=== PATIENT | male | born 1960 | race Caucasian/White ===

== ENCOUNTER 2016-09-30 14:32 | Emergency (ER) | payer MEDICAID ==
[~2016-09-30] VITALS: Ht 177.8 cm; Wt 77.1 kg
[2016-09-30 15:23] LABS: Basophils # (auto) 0 uL; Basophils % (auto) 0.3 % (0.0-2.0); Eosinophils # (auto) 0.1 uL; Eosinophils % (auto) 1.1 % (0.0-7.0); Hematocrit 44.2 % (41.0-53.0); Hemoglobin 14.8 g/dL (13.5-17.5); Lymphocytes # (auto) 1.5 uL; Mean Corpuscular Hemoglobin 29.1 pg (28.0-32.0); Mean Corpuscular Hgb Conc. 33.5 g/dL (32.0-36.0); Mean Corpuscular Volume 86.8 fL (80.0-100.0); Mean Platelet Volume 6.7 fL (7.4-10.4); Monocytes # (auto) 0.3 uL; Monocytes % (auto) 5.5 % (0.0-12.0); Neutrophils # (auto) 3.2 uL; Neutrophils % (auto) 64.1 % (37.0-80.0); Platelet Count (auto) 220 10^3/uL (140-450); Red Cell Distribution Width 13.5 % (11.6-16.0); White Blood Cell 5.1 10^3/uL (4.4-10.8)
[2016-09-30 15:57] LABS: Albumin 3.8 g/dL (3.4-5.0); Alkaline Phosphatase 47 U/L (45-117); Anion Gap 5 (5-15); Aspartate Aminotransferase 19 U/L (15-37); BUN/Creatinine Ratio 14.3; Bilirubin, Total 0.8 mg/dL (0.2-1.0); Blood Urea Nitrogen 14 mg/dL (7-18); Carbon Dioxide 28 mmol/L (21-32); Chloride 106 mmol/L (98-107); GFR African American 102 mL/min; GFR Non-African American 84 mL/min; Glucose 107 mg/dL (74-106); Magnesium 2.5 mg/dL (1.6-2.6); Potassium 3.8 mmol/L (3.5-5.1); Sodium 139 mmol/L (136-145); Total Protein 7.1 g/dL (6.4-8.2)
[2016-09-30] MEDS ORDERED: SODIUM CHLORIDE 0.9% 1,000 ML IV ONE (19:08)
[2016-09-30] MEDS ORDERED: methylPREDNISolone SOD SUCC 125 MG/2 ML VL IV ONE (19:15)
[2016-09-30] MEDS ORDERED: IPRATROPIUM BROM 0.5 MG/2.5ML INH SOL NEB ONE (19:15)
[2016-09-30] MEDS ORDERED: ALBUTEROL SULF 2.5 MG/0.5ML(0.5%) NEB SOLN NEB ONE (19:15)
[2016-09-30] MEDS ORDERED: FAMOTIDINE (10MG/ML) 2ML VL IV ONE (19:15)
[2016-09-30] MEDS ORDERED: ASPirin 81 mg TAB PO ONE (19:15)
[2016-09-30 20:08] LABS: B-Type Natriuretic Peptide 32.9 pg/mL (0-100); Temperature: 22.5 C (20.0-25.0)
[2016-09-30 20:22] LABS: INR 1.03 (0.9-1.15); Partial Thromboplastin Time 26.1 sec (22.64-33.71); Prothrombin Time 11.1 sec (9.37-12.3)
[2016-09-30 21:30] VITALS: BP 114/67
== END 2016-09-30 22:05 | disposition home or self-care (01) ==
LOC: ER 14:32 → EDBD 14:32 → ER 22:05
DX: J20.9 Acute bronchitis, unspecified (principal); J44.1 Chronic obstructive pulmonary disease with (acute) exacerbation; F17.210 Nicotine dependence, cigarettes, uncomplicated; J45.909 Unspecified asthma, uncomplicated; I25.2 Old myocardial infarction
CPT/HCPCS: 36415; 71020; 80053; 83735; 83880; 84484; 85025; 85379; 85610; 85730; 93005; 94640; 96361; 96374; 96375; 99285; J2930; J3490

== ENCOUNTER 2017-07-23 11:24 | Inpatient (IN) | payer MEDICAID ==
[~2017-07-23] VITALS: Ht 182.9 cm; Wt 64.2 kg
[2017-07-23 12:27] LABS: Basophils # (auto) 0 uL; Basophils % (auto) 0.9 % (0.0-2.0); Eosinophils # (auto) 0.1 uL; Eosinophils % (auto) 1.2 % (0.0-7.0); Hematocrit 44.4 % (41.0-53.0); Hemoglobin 14.9 g/dL (13.5-17.5); Lymphocytes # (auto) 1.6 uL; Lymphocytes % (auto) 30.4 % (10.0-50.0); Mean Corpuscular Hemoglobin 29.4 pg (28.0-32.0); Mean Corpuscular Hgb Conc. 33.5 g/dL (32.0-36.0); Mean Corpuscular Volume 87.5 fL (80.0-100.0); Monocytes # (auto) 0.5 uL; Monocytes % (auto) 9.6 % (0.0-12.0); Neutrophils % (auto) 57.9 % (37.0-80.0); Nucleated Red Blood Cells % 0.1 %; Platelet Count (auto) 163 10^3/uL (140-450); Red Blood Cells 5.08 10^6/uL (4.5-5.90); Red Cell Distribution Width 14.2 % (11.8-14.3); White Blood Cell 5.1 10^3/uL (4.4-10.8)
[2017-07-23 12:48] LABS: Albumin 3.7 g/dL (3.4-5.0); Calcium 9.2 mg/dL (8.5-10.1); Magnesium 2.5 mg/dL (1.6-2.6)
[2017-07-23 12:51] LABS: Bilirubin, Total 0.7 mg/dL (0.2-1.0)
[2017-07-23] MEDS ORDERED: LORazepam 0.5 MG TAB PO PRN (15:45)
[2017-07-23] MEDS ORDERED: PROMETHAZINE HCL 25 MG/ML 1ML IV PRN (15:45)
[2017-07-23] MEDS ORDERED: LACTULOSE 20Gm/30ML SOLN PO PRN (15:45)
[2017-07-23] MEDS ORDERED: HYDROcodone-ACET 5/325MG TAB PO PRN (15:45)
[2017-07-23] MEDS ORDERED: ALBUTEROL SULF 2.5 MG/0.5ML(0.5%) NEB SOLN NEB PRN (15:45)
[2017-07-23] MEDS ORDERED: MORPHINE SULFATE 10 MG/ML INJ 1ML SDV IV PRN ×2 (15:45)
[2017-07-23] MEDS ORDERED: NITROGLYCERIN 0.4 MG SL TAB SL PRN (15:45)
[2017-07-23] MEDS ORDERED: ACETAMINOPHEN 500 MG TAB PO PRN (15:45)
[2017-07-23] MEDS ORDERED: TEMAZEPAM 15 MG CAP PO PRN (15:45)
[2017-07-23] MEDS: SODIUM CHLORIDE 0.9% 1,000 ML IV SCH (16:19)
[2017-07-23] MEDS: methylPREDNISolone SOD SUCC 40 MG/ML VL IV SCH (16:19)
[2017-07-23 16:45] VITALS: BP 124/78
[2017-07-23] MEDS ORDERED: ASPI81CH43 PO (17:35)
[2017-07-23] MEDS ORDERED: ALBUAER3 IN (17:35)
[2017-07-23] MEDS: IPRATROPIUM BROM 0.5 MG/2.5ML INH SOL NEB SCH (18:00)
[2017-07-23] MEDS: ALBUTEROL SULF 2.5 MG/0.5ML(0.5%) NEB SOLN NEB SCH (18:00)
[2017-07-23] MEDS: METOPROLOL TARTRATE 25 MG TAB PO SCH (21:40)
[2017-07-23 22:00] VITALS: BP 125/57
[2017-07-23] MEDS ORDERED: ATORVASTATIN 20 MG TAB PO SCH (22:00)
[2017-07-24] MEDS: methylPREDNISolone SOD SUCC 40 MG/ML VL IV SCH ×2 (04:06→15:32)
[2017-07-24] MEDS: SODIUM CHLORIDE 0.9% 1,000 ML IV SCH (04:31)
[2017-07-24 05:00] VITALS: BP 101/56
[2017-07-24] MEDS: IPRATROPIUM BROM 0.5 MG/2.5ML INH SOL NEB SCH ×3 (06:23→11:39)
[2017-07-24] MEDS: ALBUTEROL SULF 2.5 MG/0.5ML(0.5%) NEB SOLN NEB SCH ×3 (06:23→11:39)
[2017-07-24 08:57] VITALS: BP 101/56
[2017-07-24 09:20] VITALS: BP 116/66
[2017-07-24] MEDS: METOPROLOL TARTRATE 25 MG TAB PO SCH (10:00)
[2017-07-24] MEDS ORDERED: NITROGLYCERIN 0.2MG/HR TOPICAL PATCH TD SCH (10:00)
[2017-07-24] MEDS ORDERED: ENOXAPARIN SOD 40 MG/0.4 ML SYRINGE SC SCH (10:00)
[2017-07-24] MEDS ORDERED: ASPirin 81 mg TAB PO SCH (10:00)
[2017-07-24 11:20] VITALS: BP 117/61
[2017-07-24] MEDS ORDERED: FLUT110A INH (14:28)
[2017-07-24] MEDS ORDERED: DOXY-216 PO (14:28)
[2017-07-24] MEDS ORDERED: IPR002IS NEB (14:28)
[2017-07-24] MEDS ORDERED: ALB5IS NEB (14:28)
[2017-07-24 15:10] VITALS: BP 116/66
[2017-07-24 17:09] VITALS: BP 114/63
== END 2017-07-24 17:00 | disposition home or self-care (01) | DRG 140 ==
LOC: ER 11:24 → TELE 11:25 → TELE-WESTW 16:37
PROVIDERS: ADMIT Internal Medicine; ATTEND Internal Medicine
DX: J44.1 Chronic obstructive pulmonary disease with (acute) exacerbation (principal); I10 Essential (primary) hypertension; I25.10 Atherosclerotic heart disease of native coronary artery without angina pectoris; I25.2 Old myocardial infarction; Z82.49 Family history of ischemic heart disease and other diseases of the circulatory system; Z95.5 Presence of coronary angioplasty implant and graft; Z83.3 Family history of diabetes mellitus; Z87.891 Personal history of nicotine dependence; R07.81 Pleurodynia
CPT/HCPCS: 36415; 71046; 80053; 82550; 83735; 84484; 85025; 85379; 85652; 93005; 94640; 96374

== ENCOUNTER 2017-08-17 21:07 | Emergency (ER) | payer MEDICAID ==
[~2017-08-17] VITALS: Ht 182.9 cm; Wt 68.0 kg
[~2017-08-17 21:07] MED LIST: ALB5IS NEB; ALBUAER3 IN; ASPI81CH43 PO; DOXY-216 PO; FLUT110A INH; IPR002IS NEB
[2017-08-17 21:13] VITALS: BP 159/105
[2017-08-17 21:59] LABS: Basophils # (auto) 0.1 uL; Basophils % (auto) 1.1 % (0.0-2.0); Eosinophils # (auto) 0.2 uL; Eosinophils % (auto) 2.3 % (0.0-7.0); Hematocrit 43.5 % (41.0-53.0); Hemoglobin 15.1 g/dL (13.5-17.5); Lymphocytes # (auto) 1.6 uL; Lymphocytes % (auto) 23.9 % (10.0-50.0); Mean Corpuscular Hemoglobin 30.6 pg (28.0-32.0); Mean Corpuscular Hgb Conc. 34.6 g/dL (32.0-36.0); Mean Corpuscular Volume 88.3 fL (80.0-100.0); Monocytes # (auto) 0.5 uL; Neutrophils # (auto) 4.3 uL; Neutrophils % (auto) 64.7 % (37.0-80.0); Nucleated Red Blood Cells % 0.2 %; Platelet Count (auto) 241 10^3/uL (140-450); Red Blood Cells 4.93 10^6/uL (4.5-5.90); Red Cell Distribution Width 15.3 % (11.8-14.3); White Blood Cell 6.7 10^3/uL (4.4-10.8)
[2017-08-17 22:20] LABS: INR 1.02 (0.9-1.15); Partial Thromboplastin Time 26.6 sec (22.64-33.71); Prothrombin Time 11.1 sec (9.37-12.3)
[2017-08-17 22:26] LABS: Alanine Aminotransferase 45 U/L (16-61); Albumin 3.7 g/dL (3.4-5.0); Anion Gap 6 (5-15); Aspartate Aminotransferase 33 U/L (15-37); BUN/Creatinine Ratio 11.8; Blood Urea Nitrogen 12 mg/dL (7-18); Calcium 8.6 mg/dL (8.5-10.1); Carbon Dioxide 27 mmol/L (21-32); Chloride 105 mmol/L (98-107); GFR African American 97 mL/min; GFR Non-African American 80 mL/min; Glucose 92 mg/dL (74-106); Magnesium 2.4 mg/dL (1.6-2.6); Potassium 4.7 mmol/L (3.5-5.1); Sodium 138 mmol/L (136-145)
[2017-08-17 22:31] LABS: Alkaline Phosphatase 61 U/L (45-117); Bilirubin, Total 0.7 mg/dL (0.2-1.0); Total Protein 7.1 g/dL (6.4-8.2)
[2017-08-18] MEDS ORDERED: ASPirin 81 mg TAB PO ONE (00:30)
== END 2017-08-18 05:55 | disposition left against medical advice (07) ==
LOC: ER 21:07 → EDBD 21:07 → ER 08-18 05:55
DX: R07.89 Other chest pain (principal); M79.671 Pain in right foot; Z53.21 Procedure and treatment not carried out due to patient leaving prior to being seen by health care provider
CPT/HCPCS: 36415; 71045; 80053; 83735; 83880; 84443; 84484; 85025; 85610; 85730; 93005

== ENCOUNTER 2017-12-21 08:11 | Inpatient (IN) | payer MEDICAID ==
[~2017-12-21] VITALS: Ht 182.9 cm; Wt 66.4 kg
[2017-12-21 09:02] LABS: Basophils # (auto) 0 uL; Basophils % (auto) 0.6 % (0.0-2.0); Eosinophils # (auto) 0.1 uL; Eosinophils % (auto) 1.1 % (0.0-7.0); Hematocrit 46.8 % (41.0-53.0); Hemoglobin 16.4 g/dL (13.5-17.5); Lymphocytes # (auto) 1.4 uL; Lymphocytes % (auto) 30.4 % (10.0-50.0); Mean Corpuscular Hemoglobin 30.8 pg (28.0-32.0); Mean Corpuscular Hgb Conc. 35.1 g/dL (32.0-36.0); Mean Corpuscular Volume 87.8 fL (80.0-100.0); Monocytes # (auto) 0.4 uL; Monocytes % (auto) 7.9 % (0.0-12.0); Neutrophils # (auto) 2.8 uL; Nucleated Red Blood Cells % 0.1 %; Platelet Count (auto) 192 10^3/uL (140-450); Red Blood Cells 5.33 10^6/uL (4.5-5.90); Red Cell Distribution Width 13.6 % (11.8-14.3); White Blood Cell 4.7 10^3/uL (4.4-10.8)
[2017-12-21 09:21] LABS: INR 1.03 (0.9-1.15); Partial Thromboplastin Time 26.6 sec (23.78-33.04)
[2017-12-21 09:34] LABS: Alanine Aminotransferase 17 U/L (16-61); Alkaline Phosphatase 48 U/L (45-117); Anion Gap 6 (5-15); Aspartate Aminotransferase 13 U/L (15-37); BUN/Creatinine Ratio 8.6; Bilirubin, Total 1.4 mg/dL (0.2-1.0); Blood Urea Nitrogen 10 mg/dL (7-18); Calcium 9.2 mg/dL (8.5-10.1); Carbon Dioxide 29 mmol/L (21-32); Chloride 105 mmol/L (98-107); GFR African American 83 mL/min; GFR Non-African American 69 mL/min; Glucose 101 mg/dL (74-106); Magnesium 2.8 mg/dL (1.6-2.6); Potassium 4.9 mmol/L (3.5-5.1); Sodium 140 mmol/L (136-145); Total Protein 7.2 g/dL (6.4-8.2)
[2017-12-21] MEDS ORDERED: LACTULOSE 20Gm/30ML SOLN PO PRN (12:45)
[2017-12-21] MEDS ORDERED: NITROGLYCERIN 0.2MG/HR TOPICAL PATCH TD ONE (12:45)
[2017-12-21] MEDS ORDERED: PROMETHAZINE HCL 25 MG/ML 1ML IV PRN (12:45)
[2017-12-21] MEDS ORDERED: TEMAZEPAM 15 MG CAP PO PRN (12:45)
[2017-12-21] MEDS ORDERED: traMADol HCL 50 MG TAB PO PRN (12:45)
[2017-12-21] MEDS ORDERED: LORazepam 0.5 MG TAB PO PRN (12:45)
[2017-12-21] MEDS ORDERED: NITROGLYCERIN 0.4 MG SL TAB SL PRN (12:45)
[2017-12-21] MEDS ORDERED: MORPHINE SULF INJ 2 MG/ML SYRINGE 1ML IV PRN (12:45)
[2017-12-21] MEDS ORDERED: ALBUTEROL SULF 2.5 MG/0.5ML(0.5%) NEB SOLN NEB PRN (12:45)
[2017-12-21] MEDS ORDERED: KETOROLAC TROMETH 30 MG/ML 1ML VIAL IV PRN (12:45)
[2017-12-21] MEDS ORDERED: ACETAMINOPHEN 500 MG TAB PO PRN (12:45)
[2017-12-21] MEDS ORDERED: ASPirin 81 mg TAB PO ONE (12:45)
[2017-12-21] MEDS ORDERED: ENOXAPARIN SOD 40 MG/0.4 ML SYRINGE SC ONE (12:45)
[2017-12-21] MEDS ORDERED: LABETALOL HCL 5 MG/ML ML 20ML VIAL IV PRN (12:45)
[2017-12-21] MEDS: SODIUM CHLORIDE 0.9% 1,000 ML IV SCH (13:10)
[2017-12-21] MEDS ORDERED: IOHEXOL 350 MG/ML 100ML IJ ONE (16:35)
[2017-12-21] MEDS ORDERED: LORazepam 2MG/ML-1ML VIAL IV PRN (17:30)
[2017-12-21] MEDS: DOXYCYCLINE 100MG/250ML 250 ML IV SCH (18:25)
[2017-12-21] MEDS: methylPREDNISolone SOD SUCC 40 MG/ML VL IV SCH (18:26)
[2017-12-21] MEDS: IPRATROPIUM BROM 0.5 MG/2.5ML INH SOL NEB SCH (19:25)
[2017-12-21] MEDS: ALBUTEROL SULF 2.5 MG/0.5ML(0.5%) NEB SOLN NEB SCH (19:25)
[2017-12-21 19:30] VITALS: BP 115/69
[2017-12-21] MEDS: ATORVASTATIN 20 MG TAB PO SCH (21:42)
[2017-12-21 22:00] VITALS: BP 135/82
[2017-12-22] MEDS: methylPREDNISolone SOD SUCC 40 MG/ML VL IV SCH ×2 (00:20→05:53)
[2017-12-22] MEDS: IPRATROPIUM BROM 0.5 MG/2.5ML INH SOL NEB SCH ×4 (00:42→18:40)
[2017-12-22] MEDS: ALBUTEROL SULF 2.5 MG/0.5ML(0.5%) NEB SOLN NEB SCH ×4 (00:43→18:40)
[2017-12-22] MEDS: SODIUM CHLORIDE 0.9% 1,000 ML IV SCH (03:05)
[2017-12-22 05:00] VITALS: BP 120/69
[2017-12-22] MEDS: DOXYCYCLINE 100MG/250ML 250 ML IV SCH (05:53)
[2017-12-22 07:07] LABS: Cholesterol 90 mg/dL (< 200); HDL Cholesterol 40 mg/dL (40-59); LDL Cholesterol 51 mg/dL (< 100); Triglycerides 39 mg/dL (< 150)
[2017-12-22 07:28] VITALS: BP 122/73
[2017-12-22] MEDS ORDERED: NITROGLYCERIN 0.2MG/HR TOPICAL PATCH TD SCH (10:00)
[2017-12-22] MEDS: ASPirin 81 mg TAB PO SCH (10:00)
[2017-12-22] MEDS: ENOXAPARIN SOD 40 MG/0.4 ML SYRINGE SC SCH (10:00)
[2017-12-22 11:27] LABS: Folate (Folic Acid) 9.1 ng/mL (5.38-24)
[2017-12-22 12:36] VITALS: BP 115/65
[2017-12-22] MEDS ORDERED: ADENOSINE 55 MG in GIVE UN-DILUTED 0 ML IV ONE (12:45)
[2017-12-22 15:53] LABS: Basophils # (auto) 0 uL; Basophils % (auto) 0.1 % (0.0-2.0); Eosinophils # (auto) 0 uL; Hematocrit 43.4 % (41.0-53.0); Hemoglobin 15.2 g/dL (13.5-17.5); Lymphocytes # (auto) 0.7 uL; Lymphocytes % (auto) 6.3 % (10.0-50.0); Mean Corpuscular Volume 88.6 fL (80.0-100.0); Monocytes # (auto) 0.3 uL; Neutrophils # (auto) 9.9 uL; Neutrophils % (auto) 90.6 % (37.0-80.0); Platelet Count (auto) 194 10^3/uL (140-450); Red Cell Distribution Width 13.5 % (11.8-14.3)
[2017-12-22 16:09] LABS: BUN/Creatinine Ratio 8.5; Calcium 9.1 mg/dL (8.5-10.1); Potassium 3.8 mmol/L (3.5-5.1)
[2017-12-22 16:16] VITALS: BP 125/72
[2017-12-22] MEDS ORDERED: CYANOCOBALAMIN (B-12) 1000 MCG/1 ML VIAL IM ONE (20:45)
[2017-12-22] MEDS ORDERED: NICOTINE 14 MG/24HR TOPICAL PATCH TD SCH (20:47)
[2017-12-22] MEDS: ATORVASTATIN 20 MG TAB PO SCH (21:18)
[2017-12-22 22:00] VITALS: BP 113/69
[2017-12-23] MEDS: IPRATROPIUM BROM 0.5 MG/2.5ML INH SOL NEB SCH ×3 (00:37→14:25)
[2017-12-23] MEDS: ALBUTEROL SULF 2.5 MG/0.5ML(0.5%) NEB SOLN NEB SCH ×3 (00:37→14:25)
[2017-12-23 05:00] VITALS: BP 129/81
[2017-12-23 05:21] LABS: Basophils # (auto) 0 uL; Basophils % (auto) 0.2 % (0.0-2.0); Eosinophils # (auto) 0 uL; Eosinophils % (auto) 0.2 % (0.0-7.0); Hematocrit 40.1 % (41.0-53.0); Lymphocytes # (auto) 1.2 uL; Lymphocytes % (auto) 13.8 % (10.0-50.0); Mean Corpuscular Hemoglobin 30.8 pg (28.0-32.0); Mean Corpuscular Hgb Conc. 34.9 g/dL (32.0-36.0); Mean Corpuscular Volume 88.2 fL (80.0-100.0); Monocytes # (auto) 0.4 uL; Neutrophils # (auto) 7.2 uL; Neutrophils % (auto) 80.8 % (37.0-80.0); Platelet Count (auto) 182 10^3/uL (140-450); Red Blood Cells 4.55 10^6/uL (4.5-5.90); Red Cell Distribution Width 13.9 % (11.8-14.3); White Blood Cell 8.9 10^3/uL (4.4-10.8)
[2017-12-23 05:36] LABS: BUN/Creatinine Ratio 18.9; Calcium 8.2 mg/dL (8.5-10.1); Magnesium 2.3 mg/dL (1.6-2.6); Potassium 3.9 mmol/L (3.5-5.1)
[2017-12-23 07:59] VITALS: BP 123/78
[2017-12-23] MEDS: ASPirin 81 mg TAB PO SCH (09:48)
[2017-12-23] MEDS: ENOXAPARIN SOD 40 MG/0.4 ML SYRINGE SC SCH (09:49)
[2017-12-23] MEDS ORDERED: CYANOCOBALAMIN 500 MCG TAB PO SCH (10:00)
[2017-12-23 12:38] VITALS: BP 134/74
[2017-12-23 16:36] VITALS: BP 112/64
== END 2017-12-23 18:30 | disposition home or self-care (01) | DRG 204 ==
LOC: ER 08:13 → TELE 08:14 → TELE-WESTW 17:43
PROVIDERS: ADMIT Internal Medicine; ATTEND Internal Medicine
DX: R55 Syncope and collapse (principal); I67.2 Cerebral atherosclerosis; J44.1 Chronic obstructive pulmonary disease with (acute) exacerbation; I10 Essential (primary) hypertension; K57.90 Diverticulosis of intestine, part unspecified, without perforation or abscess without bleeding; R07.89 Other chest pain; I25.10 Atherosclerotic heart disease of native coronary artery without angina pectoris; R00.1 Bradycardia, unspecified; F17.210 Nicotine dependence, cigarettes, uncomplicated; H53.8 Other visual disturbances; G47.10 Hypersomnia, unspecified; Z53.20 Procedure and treatment not carried out because of patient's decision for unspecified reasons; Z95.5 Presence of coronary angioplasty implant and graft; I25.2 Old myocardial infarction; Z79.82 Long term (current) use of aspirin; Z79.899 Other long term (current) drug therapy; Z85.828 Personal history of other malignant neoplasm of skin; Z82.49 Family history of ischemic heart disease and other diseases of the circulatory system; Z83.3 Family history of diabetes mellitus; Z71.6 Tobacco abuse counseling
CPT/HCPCS: 36415; 70450; 70551; 71045; 71275; 78452; 80048; 80053; 80061; 82550; 82607; 82746; 83735; 83880; 84443; 84484; 85025; 85379; 85610; 85652; 85730; 86141; 87070; 87077; 87186; 87205; 93005; 93017; 93306; 93886; 94640; 95819; 96365; 96372; 96375; J0153; J3490

== ENCOUNTER 2018-12-15 00:53 | Emergency (ER) | payer MEDICAID ==
[~2018-12-15] VITALS: Ht 182.9 cm; Wt 81.6 kg
[2018-12-15 01:37] LABS: Basophils # (auto) 0 uL; Basophils % (auto) 0.4 % (0.0-2.0); Eosinophils # (auto) 0.1 uL; Eosinophils % (auto) 1.7 % (0.0-7.0); Hematocrit 46.8 % (41.0-53.0); Lymphocytes # (auto) 1.5 uL; Lymphocytes % (auto) 31.2 % (10.0-50.0); Mean Corpuscular Hemoglobin 30.2 pg (28.0-32.0); Mean Corpuscular Hgb Conc. 34.1 g/dL (32.0-36.0); Mean Corpuscular Volume 88.5 fL (80.0-100.0); Monocytes # (auto) 0.3 uL; Neutrophils # (auto) 2.9 uL; Neutrophils % (auto) 59.7 % (37.0-80.0); Nucleated Red Blood Cells % 0.1 %; Platelet Count (auto) 166 10^3/uL (140-450); Red Blood Cells 5.29 10^6/uL (4.5-5.90); Red Cell Distribution Width 13.7 % (11.8-14.3); White Blood Cell 4.8 10^3/uL (4.4-10.8)
[2018-12-15 01:50] LABS: INR 1.04 (0.9-1.15)
[2018-12-15 01:53] LABS: Alanine Aminotransferase 18 U/L (16-61); Albumin 3.8 g/dL (3.4-5.0); Anion Gap 10 (5-15); Aspartate Aminotransferase 22 U/L (15-37); BUN/Creatinine Ratio 12.9; Blood Urea Nitrogen 15 mg/dL (7-18); Calcium 8.5 mg/dL (8.5-10.1); Carbon Dioxide 26 mmol/L (21-32); Chloride 106 mmol/L (98-107); GFR African American 83 mL/min; GFR Non-African American 69 mL/min; Glucose 111 mg/dL (74-106); Potassium 3.5 mmol/L (3.5-5.1); Sodium 142 mmol/L (136-145)
[2018-12-15 01:58] LABS: Alkaline Phosphatase 57 U/L (45-117); Bilirubin, Total 0.5 mg/dL (0.2-1.0); Total Protein 6.9 g/dL (6.4-8.2)
[2018-12-15] MEDS ORDERED: IPRATROPIUM BROM 0.5 MG/2.5ML INH SOL NEB ONE (02:15)
[2018-12-15] MEDS ORDERED: ALBUTEROL SULF 2.5 MG/0.5ML(0.5%) NEB SOLN NEB ONE (02:15)
[2018-12-15] MEDS ORDERED: methylPREDNISolone SOD SUCC 125 MG/2 ML VL IV ONE (02:30)
[2018-12-15 05:13] VITALS: BP 112/74
[2018-12-15] MEDS ORDERED: LEVOFLOXACIN 500MG 100 ML IV ONE (05:15)
[2018-12-15] MEDS ORDERED: LEVOFLOXACIN 500 MG TAB ONE (05:45)
[2018-12-15] MEDS ORDERED: LEVOFLOXACIN 250 MG TAB PO ONE (06:00)
== END 2018-12-15 05:08 | disposition home or self-care (01) ==
LOC: EDBD 00:53 → ER 00:53
DX: J44.0 Chronic obstructive pulmonary disease with (acute) lower respiratory infection (principal); J20.9 Acute bronchitis, unspecified; J44.1 Chronic obstructive pulmonary disease with (acute) exacerbation; I25.10 Atherosclerotic heart disease of native coronary artery without angina pectoris; I10 Essential (primary) hypertension; I25.2 Old myocardial infarction; F17.210 Nicotine dependence, cigarettes, uncomplicated; Z98.61 Coronary angioplasty status
CPT/HCPCS: 36415; 71045; 80053; 83880; 84484; 85025; 85610; 85730; 93005; 94640; 94761; 96374; 99284; J2930; J7611; J7644

== ENCOUNTER 2019-02-05 09:02 | Emergency (ER) | payer MEDICAID ==
[~2019-02-05] VITALS: Ht 185.4 cm; Wt 77.1 kg
[2019-02-05 09:40] LABS: Basophils # (auto) 0 uL; Basophils % (auto) 0.5 % (0.0-2.0); Eosinophils # (auto) 0.1 uL; Eosinophils % (auto) 1.4 % (0.0-7.0); Hematocrit 46.3 % (41.0-53.0); Hemoglobin 15.8 g/dL (13.5-17.5); Lymphocytes # (auto) 1.1 uL; Lymphocytes % (auto) 23.7 % (10.0-50.0); Mean Corpuscular Hgb Conc. 34.2 g/dL (32.0-36.0); Mean Corpuscular Volume 87.8 fL (80.0-100.0); Monocytes # (auto) 0.4 uL; Monocytes % (auto) 7.7 % (0.0-12.0); Neutrophils # (auto) 3.2 uL; Neutrophils % (auto) 66.7 % (37.0-80.0); Nucleated Red Blood Cells % 0.1 %; Platelet Count (auto) 166 10^3/uL (140-450); Red Blood Cells 5.27 10^6/uL (4.5-5.90); Red Cell Distribution Width 14.5 % (11.8-14.3); White Blood Cell 4.8 10^3/uL (4.4-10.8)
[2019-02-05 09:59] LABS: Albumin 3.7 g/dL (3.4-5.0); Anion Gap 4 (5-15); Blood Urea Nitrogen 9 mg/dL (7-18); Calcium 8.9 mg/dL (8.5-10.1); Carbon Dioxide 29 mmol/L (21-32); Chloride 107 mmol/L (98-107); Glucose 102 mg/dL (74-106); Magnesium 2.4 mg/dL (1.6-2.6); Potassium 4.1 mmol/L (3.5-5.1); Sodium 140 mmol/L (136-145)
[2019-02-05] MEDS ORDERED: MECLIZINE HCL 25 MG TAB PO ONE (10:00)
[2019-02-05 10:05] LABS: Alanine Aminotransferase 15 U/L (16-61); Alkaline Phosphatase 52 U/L (45-117); Aspartate Aminotransferase 10 U/L (15-37); BUN/Creatinine Ratio 9.4; Bilirubin, Total 0.6 mg/dL (0.2-1.0); GFR African American 103 mL/min; GFR Non-African American 85 mL/min; Total Protein 6.8 g/dL (6.4-8.2)
[2019-02-05 15:00] VITALS: BP 118/70
== END 2019-02-05 15:26 | disposition home or self-care (01) ==
LOC: EDBD 09:02 → ER 09:06
DX: R42 Dizziness and giddiness (principal); R11.2 Nausea with vomiting, unspecified; J44.9 Chronic obstructive pulmonary disease, unspecified; I10 Essential (primary) hypertension; I25.2 Old myocardial infarction; F17.210 Nicotine dependence, cigarettes, uncomplicated; Z98.61 Coronary angioplasty status; Z79.899 Other long term (current) drug therapy
CPT/HCPCS: 36415; 70450; 71045; 80053; 83735; 84484; 85025; 93005; 94761; 99284; J8597

== ENCOUNTER 2019-02-18 10:29 | Emergency (ER) | payer MEDICAID ==
[~2019-02-18] VITALS: Ht 182.9 cm; Wt 72.6 kg
[2019-02-18] MEDS ORDERED: SODIUM CHLORIDE 0.9% 1,000 ML IV ONE (11:09)
[2019-02-18] MEDS ORDERED: KETOROLAC TROMETH 30 MG/ML 1ML VIAL IV ONE (11:15)
[2019-02-18] MEDS ORDERED: TAMSULOSIN HYDROCHLORIDE 0.4 MG CAP PO ONE (11:15)
[2019-02-18 11:16] LABS: Basophils # (auto) 0 uL; Basophils % (auto) 0.7 % (0.0-2.0); Eosinophils # (auto) 0.1 uL; Eosinophils % (auto) 1.7 % (0.0-7.0); Hematocrit 49.5 % (41.0-53.0); Hemoglobin 16.8 g/dL (13.5-17.5); Lymphocytes # (auto) 1.3 uL; Lymphocytes % (auto) 22.8 % (10.0-50.0); Mean Corpuscular Hemoglobin 30.1 pg (28.0-32.0); Mean Corpuscular Hgb Conc. 33.9 g/dL (32.0-36.0); Mean Corpuscular Volume 88.7 fL (80.0-100.0); Monocytes # (auto) 0.4 uL; Monocytes % (auto) 7.4 % (0.0-12.0); Neutrophils # (auto) 3.8 uL; Neutrophils % (auto) 67.4 % (37.0-80.0); Platelet Count (auto) 188 10^3/uL (140-450); Red Blood Cells 5.58 10^6/uL (4.5-5.90); Red Cell Distribution Width 14.1 % (11.8-14.3); White Blood Cell 5.7 10^3/uL (4.4-10.8)
[2019-02-18 11:29] LABS: Albumin 4.2 g/dL (3.4-5.0); BUN/Creatinine Ratio 10.4; Calcium 9.7 mg/dL (8.5-10.1); Potassium 4.1 mmol/L (3.5-5.1)
[2019-02-18 11:32] LABS: Bilirubin, Total 0.4 mg/dL (0.2-1.0); Total Protein 7.2 g/dL (6.4-8.2)
[2019-02-18 13:25] LABS: Urine Bacteria NONE SEEN /hpf (None Seen); Urine Blood 2+ /uL (Negative); Urine Mucus FEW (None Seen); Urine Specific Gravity 1.018 (1.001-1.035); Urine WBC 2 /hpf (0 - 3)
[2019-02-18 14:02] VITALS: BP 124/81
== END 2019-02-18 14:42 | disposition home or self-care (01) ==
LOC: EDBD 10:29 → ER 10:29
DX: N40.0 Benign prostatic hyperplasia without lower urinary tract symptoms (principal); J44.9 Chronic obstructive pulmonary disease, unspecified; I10 Essential (primary) hypertension; I25.2 Old myocardial infarction; F17.210 Nicotine dependence, cigarettes, uncomplicated; Z87.442 Personal history of urinary calculi; Z98.61 Coronary angioplasty status; Z79.899 Other long term (current) drug therapy
CPT/HCPCS: 36415; 74176; 80053; 81001; 85025; 93005; 96374; 99284; J1885; J7030

== ENCOUNTER 2021-03-07 10:07 | Emergency (ER) | payer MEDICAID ==
[~2021-03-07] VITALS: Ht 182.9 cm; Wt 61.2 kg
[~2021-03-07 10:07] MED LIST changes: -DOXY-216 PO; +DOXY-286 PO
[2021-03-07 11:15] LABS: Basophils # (auto) 0 10 ^3/uL (0-0.2); Eosinophils # (auto) 0 10 ^3/uL (0-0.8); Eosinophils % (auto) 0.1 % (0.0-7.0); Hematocrit 45.1 % (41.0-53.0); Hemoglobin 15.7 g/dL (13.5-17.5); Lymphocytes # (auto) 0.7 10 ^3/uL (0.4-5.4); Lymphocytes % (auto) 12.1 % (10.0-50.0); Mean Corpuscular Hemoglobin 30.1 pg (28.0-32.0); Mean Corpuscular Hgb Conc. 34.8 g/dL (32.0-36.0); Mean Corpuscular Volume 86.5 fL (80.0-100.0); Monocytes # (auto) 0.5 10 ^3/uL (0-1.3); Monocytes % (auto) 8.4 % (0.0-12.0); Neutrophils # (auto) 4.5 10 ^3/uL (1.6-8.6); Neutrophils % (auto) 79.4 % (37.0-80.0); Nucleated Red Blood Cells % 0.1 %; Red Blood Cells 5.21 10^6/uL (4.5-5.90); Red Cell Distribution Width 14.1 % (11.8-14.3); White Blood Cell 5.7 10^3/uL (4.4-10.8)
[2021-03-07 11:59] LABS: Albumin 3.3 g/dL (3.4-5.0); Anion Gap 8 (5-15); Blood Urea Nitrogen 16 mg/dL (7-18); Calcium 8.7 mg/dL (8.5-10.1); Carbon Dioxide 26 mmol/L (21-32); Chloride 101 mmol/L (98-107); Glucose 94 mg/dL (74-106); Potassium 4.1 mmol/L (3.5-5.1); Sodium 135 mmol/L (136-145)
[2021-03-07] MEDS ORDERED: methylPREDNISolone SOD SUCC 125 MG/2 ML VL IV ONE (12:00)
[2021-03-07 12:04] LABS: Alanine Aminotransferase 23 U/L (16-61); Alkaline Phosphatase 53 U/L (45-117); Aspartate Aminotransferase 14 U/L (15-37); BUN/Creatinine Ratio 16.8; Bilirubin, Total 1.2 mg/dL (0.2-1.0); GFR African American 104 mL/min; GFR Non-African American 86 mL/min
[2021-03-07] MEDS: ALBUTEROL SULF 2.5 MG/0.5ML(0.5%) NEB SOLN NEB ONE ×2 (13:19→13:26)
[2021-03-07] MEDS: IPRATROPIUM BROM 0.5 MG/2.5ML INH SOL NEB ONE ×2 (13:19→13:26)
[2021-03-07] MEDS ORDERED: ZINC220C10 PO (13:57)
[2021-03-07] MEDS ORDERED: CHOL1CAP47 PO (13:57)
[2021-03-07] MEDS ORDERED: ASCO500T11 PO (13:57)
[2021-03-07] MEDS ORDERED: ALBUAER3 IN (13:57)
[2021-03-07] MEDS ORDERED: IPRIH IN (13:57)
[2021-03-07 17:00] VITALS: BP 104/70
[2021-03-07] MEDS ORDERED: methylPREDNISolone SOD SUCC 125 MG/2 ML VL IM ONE (17:30)
== END 2021-03-07 18:27 | disposition home or self-care (01) ==
LOC: EDBD 10:07 → ER 10:07
DX: U07.1 COVID-19 (principal); J44.1 Chronic obstructive pulmonary disease with (acute) exacerbation; C44.321 Squamous cell carcinoma of skin of nose; E46 Unspecified protein-calorie malnutrition; Z68.1 Body mass index [BMI] 19.9 or less, adult; I25.10 Atherosclerotic heart disease of native coronary artery without angina pectoris; I10 Essential (primary) hypertension; I25.2 Old myocardial infarction; F17.210 Nicotine dependence, cigarettes, uncomplicated; Z90.89 Acquired absence of other organs
CPT/HCPCS: 36415; 71045; 80053; 84484; 85025; 87426; 93005; 94640; 96372; 99285; J2930; J7644

== ENCOUNTER 2022-09-04 08:29 | Inpatient (IN) | payer MEDICAID ==
[~2022-09-04] VITALS: Ht 188 cm; Wt 91.7 kg
[~2022-09-04 08:29] MED LIST changes: +ASCO500T11 PO; +CHOL1CAP47 PO; +IPRIH IN; +ZINC220C10 PO
[2022-09-04] MEDS ORDERED: IPRATROPIUM BROM 0.5 MG/2.5ML INH SOL NEB ONE (08:45)
[2022-09-04] MEDS ORDERED: methylPREDNISolone SOD SUCC 125 MG/2 ML VL IV ONE (08:45)
[2022-09-04] MEDS ORDERED: ALBUTEROL SULF 2.5 MG/0.5ML(0.5%) NEB SOLN NEB ONE (08:45)
[2022-09-04 09:09] LABS: Basophils # (auto) 0.1 10 ^3/uL (0-0.2); Basophils % (auto) 0.4 % (0.0-2.0); Eosinophils # (auto) 0 10 ^3/uL (0-0.8); Hematocrit 45.5 % (41.0-53.0); Hemoglobin 15.9 g/dL (13.5-17.5); Lymphocytes # (auto) 0.6 10 ^3/uL (0.4-5.4); Lymphocytes % (auto) 4.1 % (10.0-50.0); Mean Corpuscular Hemoglobin 30.9 pg (28.0-32.0); Mean Corpuscular Volume 88.3 fL (80.0-100.0); Monocytes # (auto) 1.8 10 ^3/uL (0-1.3); Monocytes % (auto) 12.6 % (0.0-12.0); Neutrophils # (auto) 12.1 10 ^3/uL (1.6-8.6); Neutrophils % (auto) 82.9 % (37.0-80.0); Nucleated Red Blood Cells % 0.1 %; Red Blood Cells 5.15 10^6/uL (4.5-5.90); Red Cell Distribution Width 13.5 % (11.8-14.3); White Blood Cell 14.7 10^3/uL (4.4-10.8)
[2022-09-04 09:11] LABS: Albumin 3.3 g/dL (3.4-5.0); Calcium 9.1 mg/dL (8.5-10.1); Potassium 4.5 mmol/L (3.5-5.1)
[2022-09-04 09:15] LABS: Bilirubin, Total 1.1 mg/dL (0.2-1.0); Total Protein 6.6 g/dL (6.4-8.2)
[2022-09-04] MEDS ORDERED: cefTRIAXone 1GM/50ML D5W 50 ML IV ONE (09:15)
[2022-09-04] MEDS ORDERED: IOHEXOL 350 MG/ML 100ML IJ ONE (09:39)
[2022-09-04 10:56] LABS: Lactic Acid w/Reflex 2.7 mmol/L (0.4-2.0)
[2022-09-04 11:16] LABS: INR 1.18 (0.9-1.15); Partial Thromboplastin Time 30.6 sec (24.6-33.4)
[2022-09-04 11:48] LABS: Urine Bacteria NONE SEEN /hpf (None Seen); Urine Blood 1+ /uL (Negative); Urine Mucus MANY (None Seen); Urine WBC 6 /hpf (0 - 3)
[2022-09-04 11:54] LABS: Urine Specific Gravity > 1.050 (1.001-1.035)
[2022-09-04] MEDS ORDERED: SODIUM CHLORIDE 0.9% 1,000 ML IV ONE (12:45)
[2022-09-04] MEDS ORDERED: ONDANSETRON HCL 4 MG/2 ML VIAL IV PRN (13:30)
[2022-09-04] MEDS ORDERED: NITROGLYCERIN 0.4 MG SL TAB SL PRN (13:30)
[2022-09-04] MEDS ORDERED: MORPHINE SULFATE INJ 2 MG/ml SYRG IV PRN (13:30)
[2022-09-04] MEDS ORDERED: AZITHROMYCIN 500MG/ 250ML 250 ML IV ONE (13:30)
[2022-09-04] MEDS ORDERED: HYDROcodone-ACET 5/325MG TAB PO PRN (13:30)
[2022-09-04] MEDS: SODIUM CHLOR 0.9% PF (SALINE LOCK) 10ML VIAL/SYR IV SCH ×2 (13:52→22:39)
[2022-09-04 14:44] VITALS: BP 103/80
[2022-09-04] MEDS: ALBUTEROL SULF 2.5 MG/0.5ML(0.5%) NEB SOLN NEB PRN ×2 (20:40→23:56)
[2022-09-04] MEDS: IPRATROPIUM BROM 0.5 MG/2.5ML INH SOL NEB PRN ×2 (20:40→23:56)
[2022-09-04] MEDS: methylPREDNISolone SOD SUCC 40 MG/ML VL IV SCH (22:39)
[2022-09-04 23:21] VITALS: BP 111/82
[2022-09-05 05:00] VITALS: BP 110/74
[2022-09-05] MEDS: SODIUM CHLOR 0.9% PF (SALINE LOCK) 10ML VIAL/SYR IV SCH ×3 (05:34→21:19)
[2022-09-05 06:21] LABS: Basophils # (auto) 0 10 ^3/uL (0-0.2); Basophils % (auto) 0.3 % (0.0-2.0); Eosinophils # (auto) 0 10 ^3/uL (0-0.8); Hematocrit 40.4 % (41.0-53.0); Lymphocytes # (auto) 0.5 10 ^3/uL (0.4-5.4); Mean Corpuscular Hemoglobin 30.9 pg (28.0-32.0); Mean Corpuscular Hgb Conc. 34.6 g/dL (32.0-36.0); Mean Corpuscular Volume 89.5 fL (80.0-100.0); Monocytes # (auto) 0.6 10 ^3/uL (0-1.3); Monocytes % (auto) 5.9 % (0.0-12.0); Neutrophils # (auto) 9.1 10 ^3/uL (1.6-8.6); Neutrophils % (auto) 88.8 % (37.0-80.0); Red Blood Cells 4.52 10^6/uL (4.5-5.90); Red Cell Distribution Width 13.4 % (11.8-14.3); White Blood Cell 10.3 10^3/uL (4.4-10.8)
[2022-09-05 06:31] LABS: Potassium 4.6 mmol/L (3.5-5.1)
[2022-09-05 06:35] LABS: Albumin 2.8 g/dL (3.4-5.0); BUN/Creatinine Ratio 34.3; Calcium 10.1 mg/dL (8.5-10.1)
[2022-09-05 06:42] LABS: Bilirubin, Total 0.5 mg/dL (0.2-1.0); Total Protein 7.1 g/dL (6.4-8.2)
[2022-09-05] MEDS: IPRATROPIUM BROM 0.5 MG/2.5ML INH SOL NEB PRN (07:43)
[2022-09-05] MEDS: ALBUTEROL SULF 2.5 MG/0.5ML(0.5%) NEB SOLN NEB PRN (07:44)
[2022-09-05 08:00] VITALS: BP 104/66
[2022-09-05] MEDS: ASPirin 81 mg TAB PO SCH (09:22)
[2022-09-05] MEDS: cefTRIAXone 1GM/50ML D5W 50 ML IV SCH (09:22)
[2022-09-05] MEDS: methylPREDNISolone SOD SUCC 40 MG/ML VL IV SCH ×3 (09:22→21:18)
[2022-09-05] MEDS ORDERED: PANTOPRAZOLE 40 MG/10 ML VIAL INJ IV SCH (10:00)
[2022-09-05] MEDS: AZITHROMYCIN 500MG/ 250ML 250 ML IV SCH (10:30)
[2022-09-05 12:00] VITALS: BP 95/69
[2022-09-05] MEDS: IPRATROPIUM BROM 0.5 MG/2.5ML INH SOL NEB SCH ×2 (12:00→18:59)
[2022-09-05] MEDS: ALBUTEROL SULF 2.5 MG/0.5ML(0.5%) NEB SOLN NEB SCH ×2 (12:00→18:59)
[2022-09-05 16:00] VITALS: BP 110/74
[2022-09-05] MEDS ORDERED: IPRATROPIUM BROM 0.5 MG/2.5ML INH SOL NEB PRN (17:00)
[2022-09-05] MEDS ORDERED: ALBUTEROL SULF 2.5 MG/0.5ML(0.5%) NEB SOLN NEB PRN (17:00)
[2022-09-05] MEDS: BUDESONIDE (INHALATION) 0.5 MG/2 ML NEB NEB SCH (19:00)
[2022-09-05] MEDS: FAMOTIDINE 20 MG TAB PO SCH (21:17)
[2022-09-05 22:00] VITALS: BP 108/71
[2022-09-06] MEDS: methylPREDNISolone SOD SUCC 40 MG/ML VL IV SCH ×4 (03:29→21:08)
[2022-09-06 05:00] VITALS: BP 105/71
[2022-09-06] MEDS: SODIUM CHLOR 0.9% PF (SALINE LOCK) 10ML VIAL/SYR IV SCH ×3 (05:09→21:08)
[2022-09-06] MEDS: IPRATROPIUM BROM 0.5 MG/2.5ML INH SOL NEB SCH ×3 (06:16→18:30)
[2022-09-06] MEDS: ALBUTEROL SULF 2.5 MG/0.5ML(0.5%) NEB SOLN NEB SCH ×3 (06:17→18:30)
[2022-09-06] MEDS: BUDESONIDE (INHALATION) 0.5 MG/2 ML NEB NEB SCH ×2 (06:17→18:30)
[2022-09-06 08:30] VITALS: BP 121/80
[2022-09-06] MEDS: cefTRIAXone 1GM/50ML D5W 50 ML IV SCH (09:43)
[2022-09-06] MEDS: FAMOTIDINE 20 MG TAB PO SCH ×2 (11:02→21:07)
[2022-09-06] MEDS: AZITHROMYCIN 500MG/ 250ML 250 ML IV SCH (11:03)
[2022-09-06] MEDS: ENOXAPARIN SOD 40 MG/0.4 ML SYRINGE SC SCH (11:03)
[2022-09-06] MEDS: ASPirin 81 mg TAB PO SCH (11:03)
[2022-09-06 12:30] VITALS: BP 113/73
[2022-09-06 17:00] VITALS: BP 111/70
[2022-09-06] MEDS: ACETYLCYSTEINE 10 %(100MG/ML) SOL 4ML NEB SCH (18:30)
[2022-09-07] MEDS: methylPREDNISolone SOD SUCC 40 MG/ML VL IV SCH ×4 (04:00→21:46)
[2022-09-07 05:00] VITALS: BP 132/67
[2022-09-07] MEDS: SODIUM CHLOR 0.9% PF (SALINE LOCK) 10ML VIAL/SYR IV SCH ×3 (05:42→21:47)
[2022-09-07] MEDS: ACETAMINOPHEN 325 MG TAB PO PRN (05:42)
[2022-09-07] MEDS: ACETYLCYSTEINE 10 %(100MG/ML) SOL 4ML NEB SCH ×3 (06:04→20:27)
[2022-09-07] MEDS: BUDESONIDE (INHALATION) 0.5 MG/2 ML NEB NEB SCH ×2 (06:04→20:27)
[2022-09-07] MEDS: ALBUTEROL SULF 2.5 MG/0.5ML(0.5%) NEB SOLN NEB SCH ×3 (06:04→20:27)
[2022-09-07] MEDS: IPRATROPIUM BROM 0.5 MG/2.5ML INH SOL NEB SCH ×3 (06:04→20:27)
[2022-09-07 09:00] VITALS: BP 113/71
[2022-09-07] MEDS: cefTRIAXone 1GM/50ML D5W 50 ML IV SCH (09:32)
[2022-09-07] MEDS: AZITHROMYCIN 500MG/ 250ML 250 ML IV SCH (10:34)
[2022-09-07] MEDS: FAMOTIDINE 20 MG TAB PO SCH ×2 (10:34→21:46)
[2022-09-07] MEDS: ENOXAPARIN SOD 40 MG/0.4 ML SYRINGE SC SCH (10:34)
[2022-09-07] MEDS: ASPirin 81 mg TAB PO SCH (10:34)
[2022-09-07 10:40] VITALS: BP 113/71
[2022-09-07 12:15] LABS: Calcium 9.2 mg/dL (8.5-10.1); Potassium 4.4 mmol/L (3.5-5.1)
[2022-09-07 13:00] VITALS: BP 121/71
[2022-09-07] MEDS ORDERED: IOHEXOL 350 MG/ML 100ML IJ ONE (15:23)
[2022-09-07 17:00] VITALS: BP 117/77
[2022-09-07] MEDS: DOCUSATE SOD 100 MG CAP PO PRN (18:54)
[2022-09-07 22:00] VITALS: BP 111/65
[2022-09-08] MEDS: methylPREDNISolone SOD SUCC 40 MG/ML VL IV SCH ×4 (04:27→21:40)
[2022-09-08] MEDS: SODIUM CHLOR 0.9% PF (SALINE LOCK) 10ML VIAL/SYR IV SCH ×3 (04:30→21:41)
[2022-09-08 05:00] VITALS: BP 111/72
[2022-09-08] MEDS: ACETYLCYSTEINE 10 %(100MG/ML) SOL 4ML NEB SCH ×3 (06:58→19:18)
[2022-09-08] MEDS: BUDESONIDE (INHALATION) 0.5 MG/2 ML NEB NEB SCH ×2 (06:58→19:15)
[2022-09-08] MEDS: IPRATROPIUM BROM 0.5 MG/2.5ML INH SOL NEB SCH ×3 (06:58→19:15)
[2022-09-08] MEDS: ALBUTEROL SULF 2.5 MG/0.5ML(0.5%) NEB SOLN NEB SCH ×3 (06:58→19:15)
[2022-09-08 09:00] VITALS: BP 120/82
[2022-09-08] MEDS: cefTRIAXone 1GM/50ML D5W 50 ML IV SCH (09:00)
[2022-09-08] MEDS: FAMOTIDINE 20 MG TAB PO SCH ×2 (10:31→21:41)
[2022-09-08] MEDS: AZITHROMYCIN 500MG/ 250ML 250 ML IV SCH (10:31)
[2022-09-08] MEDS: ENOXAPARIN SOD 40 MG/0.4 ML SYRINGE SC SCH (10:31)
[2022-09-08] MEDS: ASPirin 81 mg TAB PO SCH (10:31)
[2022-09-08] MEDS: DOCUSATE SOD 100 MG CAP PO PRN (12:32)
[2022-09-08 13:00] VITALS: BP 105/62
[2022-09-08 17:00] VITALS: BP 115/76
[2022-09-08] MEDS: ACETAMINOPHEN 325 MG TAB PO PRN (21:41)
[2022-09-08 22:00] VITALS: BP 136/77
[2022-09-09] MEDS: methylPREDNISolone SOD SUCC 40 MG/ML VL IV SCH ×4 (04:25→21:17)
[2022-09-09 05:00] VITALS: BP 131/77
[2022-09-09] MEDS: SODIUM CHLOR 0.9% PF (SALINE LOCK) 10ML VIAL/SYR IV SCH ×3 (06:06→22:00)
[2022-09-09] MEDS: ACETYLCYSTEINE 10 %(100MG/ML) SOL 4ML NEB SCH ×3 (06:49→23:37)
[2022-09-09] MEDS: ALBUTEROL SULF 2.5 MG/0.5ML(0.5%) NEB SOLN NEB SCH ×3 (06:49→23:37)
[2022-09-09] MEDS: IPRATROPIUM BROM 0.5 MG/2.5ML INH SOL NEB SCH ×3 (06:49→23:37)
[2022-09-09 08:25] VITALS: BP 108/59
[2022-09-09] MEDS: FAMOTIDINE 20 MG TAB PO SCH ×2 (11:01→21:17)
[2022-09-09] MEDS: ASPirin 81 mg TAB PO SCH (11:02)
[2022-09-09] MEDS: ENOXAPARIN SOD 40 MG/0.4 ML SYRINGE SC SCH (11:02)
[2022-09-09] MEDS: cefTRIAXone 1GM/50ML D5W 50 ML IV SCH (11:03)
[2022-09-09] MEDS: BUDESONIDE (INHALATION) 0.5 MG/2 ML NEB NEB SCH ×2 (11:23→23:38)
[2022-09-09 12:20] VITALS: BP 113/74
[2022-09-09] MEDS: AZITHROMYCIN 500MG/ 250ML 250 ML IV SCH (12:27)
[2022-09-09] MEDS: ACETAMINOPHEN 325 MG TAB PO PRN (15:06)
[2022-09-09 16:15] VITALS: BP 110/70
[2022-09-10] MEDS: methylPREDNISolone SOD SUCC 40 MG/ML VL IV SCH ×3 (04:22→17:00)
[2022-09-10 05:00] VITALS: BP 117/83
[2022-09-10] MEDS: SODIUM CHLOR 0.9% PF (SALINE LOCK) 10ML VIAL/SYR IV SCH ×2 (06:00→15:46)
[2022-09-10] MEDS: BUDESONIDE (INHALATION) 0.5 MG/2 ML NEB NEB SCH ×2 (06:38→19:04)
[2022-09-10] MEDS: ACETYLCYSTEINE 10 %(100MG/ML) SOL 4ML NEB SCH ×3 (06:38→19:04)
[2022-09-10] MEDS: IPRATROPIUM BROM 0.5 MG/2.5ML INH SOL NEB SCH ×3 (06:38→19:04)
[2022-09-10] MEDS: ALBUTEROL SULF 2.5 MG/0.5ML(0.5%) NEB SOLN NEB SCH ×3 (06:38→19:04)
[2022-09-10 09:00] VITALS: BP 114/76
[2022-09-10] MEDS: cefTRIAXone 1GM/50ML D5W 50 ML IV SCH (09:09)
[2022-09-10] MEDS: ENOXAPARIN SOD 40 MG/0.4 ML SYRINGE SC SCH (09:10)
[2022-09-10] MEDS: ASPirin 81 mg TAB PO SCH (09:10)
[2022-09-10] MEDS: FAMOTIDINE 20 MG TAB PO SCH (09:10)
[2022-09-10] MEDS: AZITHROMYCIN 500MG/ 250ML 250 ML IV SCH (11:30)
[2022-09-10 13:00] VITALS: BP 120/76
[2022-09-10] MEDS ORDERED: IPR002IS NEB (15:21)
[2022-09-10] MEDS ORDERED: AMOX500T86 PO (15:21)
[2022-09-10] MEDS ORDERED: ALBUAER3 IN (15:21)
[2022-09-10] MEDS ORDERED: PRED20TA2 PO (15:21)
[2022-09-10] MEDS ORDERED: ALB5IS NEB (15:21)
[2022-09-10] MEDS: ACETAMINOPHEN 325 MG TAB PO PRN (15:45)
[2022-09-10] MEDS: DOCUSATE SOD 100 MG CAP PO PRN (15:45)
[2022-09-10 16:47] VITALS: BP 107/59
== END 2022-09-10 19:50 | disposition home health service (06) | DRG 145 ==
LOC: ER 08:29 → EDBD 08:29 → TELE 13:41 → TELE-WESTW 21:22 → WEST WING 09-07 16:49
PROVIDERS: ADMIT Nurse Practitioner Family; ATTEND Hospitalist
DX: J20.9 Acute bronchitis, unspecified (principal); J96.01 Acute respiratory failure with hypoxia; E44.1 Mild protein-calorie malnutrition; J44.0 Chronic obstructive pulmonary disease with (acute) lower respiratory infection; J44.1 Chronic obstructive pulmonary disease with (acute) exacerbation; J45.901 Unspecified asthma with (acute) exacerbation; C76.0 Malignant neoplasm of head, face and neck; I10 Essential (primary) hypertension; I25.10 Atherosclerotic heart disease of native coronary artery without angina pectoris; F17.210 Nicotine dependence, cigarettes, uncomplicated; Z20.822 Contact with and (suspected) exposure to COVID-19; I25.2 Old myocardial infarction; Z85.828 Personal history of other malignant neoplasm of skin; Z80.1 Family history of malignant neoplasm of trachea, bronchus and lung; Z82.49 Family history of ischemic heart disease and other diseases of the circulatory system; Z87.442 Personal history of urinary calculi; Z68.26 Body mass index [BMI] 26.0-26.9, adult
CPT/HCPCS: 36415; 36600; 70450; 71045; 71260; 71275; 73100; 73560; 74177; 80048; 80053; 81001; 82805; 83605; 83880; 84484; 85025; 85610; 85730; 87040; 87070; 87205; 87426; 93005; 94640; 96361; 96365; 96375; 97110; 97116; 97163; 97530; 99291; C9113; G0378; J0696

== ENCOUNTER 2022-09-30 14:59 | Inpatient (IN) | payer MEDICAID ==
[~2022-09-30] VITALS: Ht 182.9 cm; Wt 59.5 kg
[~2022-09-30 14:59] MED LIST changes: +AMOX500T86 PO; -ASCO500T11 PO; -CHOL1CAP47 PO; -DOXY-286 PO; +PRED20TA2 PO; -ZINC220C10 PO
[2022-09-30 15:29] LABS: Basophils # (auto) 0 10 ^3/uL (0-0.2); Basophils % (auto) 0.4 % (0.0-2.0); Eosinophils # (auto) 0.1 10 ^3/uL (0-0.8); Eosinophils % (auto) 2.2 % (0.0-7.0); Hematocrit 44.8 % (41.0-53.0); Hemoglobin 15.4 g/dL (13.5-17.5); Lymphocytes # (auto) 0.6 10 ^3/uL (0.4-5.4); Lymphocytes % (auto) 12.6 % (10.0-50.0); Mean Corpuscular Hemoglobin 30.5 pg (28.0-32.0); Mean Corpuscular Hgb Conc. 34.5 g/dL (32.0-36.0); Mean Corpuscular Volume 88.5 fL (80.0-100.0); Monocytes # (auto) 0.5 10 ^3/uL (0-1.3); Monocytes % (auto) 9.8 % (0.0-12.0); Neutrophils # (auto) 3.8 10 ^3/uL (1.6-8.6); Nucleated Red Blood Cells % 0.2 %; Red Blood Cells 5.06 10^6/uL (4.5-5.90); Red Cell Distribution Width 14.3 % (11.8-14.3); White Blood Cell 5.1 10^3/uL (4.4-10.8)
[2022-09-30 15:43] LABS: Albumin 3.4 g/dL (3.4-5.0); Calcium 9.2 mg/dL (8.5-10.1); Potassium 4.2 mmol/L (3.5-5.1)
[2022-09-30 15:47] LABS: BUN/Creatinine Ratio 10.8 (10.0-20.0); Bilirubin, Total 1.3 mg/dL (0.2-1.0); Total Protein 6.2 g/dL (6.4-8.2)
[2022-09-30] MEDS ORDERED: ALBUTEROL SULF 2.5 MG/0.5ML(0.5%) NEB SOLN NEB ONE (17:30)
[2022-09-30] MEDS ORDERED: methylPREDNISolone SOD SUCC 125 MG/2 ML VL IV ONE (17:30)
[2022-09-30] MEDS ORDERED: IPRATROPIUM BROM 0.5 MG/2.5ML INH SOL NEB ONE (17:30)
[2022-09-30] MEDS ORDERED: IPRATROPIUM BROM 0.5 MG/2.5ML INH SOL NEB PRN (18:15)
[2022-09-30] MEDS ORDERED: NITROGLYCERIN 0.4 MG SL TAB SL PRN (18:15)
[2022-09-30] MEDS ORDERED: ALBUTEROL SULF 2.5 MG/0.5ML(0.5%) NEB SOLN NEB PRN (18:15)
[2022-09-30] MEDS ORDERED: MORPHINE SULFATE INJ 2 MG/ml SYRG IV PRN (18:15)
[2022-09-30] MEDS ORDERED: DEXTROSE (50%) 50ML SYRG IV PRN (18:45)
[2022-09-30] MEDS ORDERED: PANTOPRAZOLE 40 MG/10 ML VIAL INJ IV ONE (18:45)
[2022-09-30] MEDS ORDERED: METOPROLOL TARTRATE 25 MG TAB PO ONE (18:45)
[2022-09-30] MEDS ORDERED: ENOXAPARIN SOD 100 MG/1 ML SYRINGE SC ONE (18:45)
[2022-09-30] MEDS ORDERED: ASPirin 325 MG TAB PO ONE (18:45)
[2022-09-30 19:08] LABS: Cholesterol 126 mg/dL (< 200)
[2022-09-30 19:11] LABS: HDL Cholesterol 65 mg/dL (40-59); LDL Cholesterol 60 mg/dL (< 100); Triglycerides 64 mg/dL (< 150)
[2022-09-30] MEDS: methylPREDNISolone SOD SUCC 125 MG/2 ML VL IV SCH (20:12)
[2022-09-30] MEDS ORDERED: IOHEXOL 350 MG/ML 100ML IJ ONE (20:53)
[2022-09-30 21:32] VITALS: BP 103/61
[2022-09-30] MEDS: InsuLIN REG 1unit/0.01ml Soln (100units/ml) SC SCH (22:00)
[2022-09-30] MEDS: METOPROLOL TARTRATE 25 MG TAB PO SCH (22:00)
[2022-09-30] MEDS: ACCU-CHEK COMFORT CURVE STRIP VI SCH (22:27)
[2022-09-30] MEDS: ATORVASTATIN 20 MG TAB PO SCH (22:34)
[2022-10-01] MEDS: ALBUTEROL SULF 2.5 MG/0.5ML(0.5%) NEB SOLN NEB SCH ×4 (00:21→19:09)
[2022-10-01] MEDS: IPRATROPIUM BROM 0.5 MG/2.5ML INH SOL NEB SCH ×4 (00:22→19:08)
[2022-10-01 05:48] LABS: Urine Bacteria NONE SEEN /hpf (None Seen); Urine Blood TRACE /uL (Negative); Urine Mucus FEW (None Seen); Urine WBC 1 /hpf (0 - 3)
[2022-10-01 05:50] LABS: Urine Specific Gravity > 1.050 (1.001-1.035)
[2022-10-01 06:04] LABS: Basophils # (auto) 0 10 ^3/uL (0-0.2); Basophils % (auto) 0.4 % (0.0-2.0); Eosinophils # (auto) 0 10 ^3/uL (0-0.8); Eosinophils % (auto) 0.4 % (0.0-7.0); Hematocrit 41.7 % (41.0-53.0); Hemoglobin 14.9 g/dL (13.5-17.5); Lymphocytes # (auto) 0.5 10 ^3/uL (0.4-5.4); Lymphocytes % (auto) 17.6 % (10.0-50.0); Mean Corpuscular Hemoglobin 30.7 pg (28.0-32.0); Mean Corpuscular Hgb Conc. 35.8 g/dL (32.0-36.0); Mean Corpuscular Volume 85.9 fL (80.0-100.0); Monocytes # (auto) 0.1 10 ^3/uL (0-1.3); Neutrophils # (auto) 2.3 10 ^3/uL (1.6-8.6); Neutrophils % (auto) 78.6 % (37.0-80.0); Nucleated Red Blood Cells % 0.1 %; Red Blood Cells 4.86 10^6/uL (4.5-5.90); Red Cell Distribution Width 14.1 % (11.8-14.3); White Blood Cell 2.9 10^3/uL (4.4-10.8)
[2022-10-01 06:24] LABS: Alcohol, Urine < 3.0 mg/dL (0-10); Amphetamine Screen, Urine NEGATIVE (NEGATIVE); Barbiturate Scree,Urine NEGATIVE (NEGATIVE); Benzodiazephine Screen, Urine NEGATIVE (NEGATIVE); Cannabinoid Screen, Urine NEGATIVE (NEGATIVE); Cocaine Screen, Urine NEGATIVE (NEGATIVE); Opiate Scree,Urine NEGATIVE (NEGATIVE); Phencyclidine Screen, Urine NEGATIVE (NEGATIVE)
[2022-10-01 06:30] LABS: Albumin 3.3 g/dL (3.4-5.0); BUN/Creatinine Ratio 14.6 (10.0-20.0); Bilirubin, Total 0.7 mg/dL (0.2-1.0); Calcium 9.9 mg/dL (8.5-10.1)
[2022-10-01 06:36] LABS: Potassium 5.6 mmol/L (3.5-5.1)
[2022-10-01] MEDS: ACCU-CHEK COMFORT CURVE STRIP VI SCH ×4 (06:53→22:46)
[2022-10-01] MEDS: InsuLIN REG 1unit/0.01ml Soln (100units/ml) SC SCH ×4 (06:55→22:52)
[2022-10-01] MEDS: ASPirin 81 mg TAB PO SCH (08:59)
[2022-10-01] MEDS: methylPREDNISolone SOD SUCC 125 MG/2 ML VL IV SCH ×2 (08:59→20:52)
[2022-10-01] MEDS: PANTOPRAZOLE 40 MG/10 ML VIAL INJ IV SCH (08:59)
[2022-10-01] MEDS: ENOXAPARIN SOD 40 MG/0.4 ML SYRINGE SC SCH (08:59)
[2022-10-01] MEDS: METOPROLOL TARTRATE 25 MG TAB PO SCH ×2 (10:00→22:00)
[2022-10-01] MEDS ORDERED: Ensure HIGH Protein Chocolate 8oz Bottle PO SCH (12:00)
[2022-10-01] MEDS: Glucerna Carbsteady SHAKE Vanilla 8oz PO SCH ×2 (18:00→22:00)
[2022-10-01 22:38] VITALS: BP 100/61
[2022-10-01] MEDS: ATORVASTATIN 20 MG TAB PO SCH (22:54)
[2022-10-01 23:18] VITALS: BP 100/61
[2022-10-02] MEDS: IPRATROPIUM BROM 0.5 MG/2.5ML INH SOL NEB SCH ×4 (00:07→19:13)
[2022-10-02] MEDS: ALBUTEROL SULF 2.5 MG/0.5ML(0.5%) NEB SOLN NEB SCH ×4 (00:07→19:13)
[2022-10-02 04:23] VITALS: BP 96/60
[2022-10-02] MEDS: Glucerna Carbsteady SHAKE Vanilla 8oz PO SCH ×4 (06:00→22:00)
[2022-10-02] MEDS: InsuLIN REG 1unit/0.01ml Soln (100units/ml) SC SCH ×4 (06:38→22:00)
[2022-10-02] MEDS: ACCU-CHEK COMFORT CURVE STRIP VI SCH ×4 (06:38→22:39)
[2022-10-02] MEDS ORDERED: REGADENOSON 0.4 MG/5 ML SYRG IV ONE ×2 (07:54→08:00)
[2022-10-02] MEDS: methylPREDNISolone SOD SUCC 125 MG/2 ML VL IV SCH ×2 (08:18→22:37)
[2022-10-02 09:00] VITALS: BP 103/60
[2022-10-02] MEDS: METOPROLOL TARTRATE 25 MG TAB PO SCH ×2 (10:00→22:00)
[2022-10-02] MEDS: PANTOPRAZOLE 40 MG/10 ML VIAL INJ IV SCH (10:40)
[2022-10-02] MEDS: ENOXAPARIN SOD 40 MG/0.4 ML SYRINGE SC SCH (10:41)
[2022-10-02] MEDS: ASPirin 81 mg TAB PO SCH (10:41)
[2022-10-02 13:00] VITALS: BP 142/72
[2022-10-02 16:56] VITALS: BP 121/73
[2022-10-02 20:00] VITALS: BP 89/52
[2022-10-02] MEDS ORDERED: ASPirin 81 mg TAB PO ONE (21:00)
[2022-10-02 22:00] VITALS: BP 89/52
[2022-10-02] MEDS: ATORVASTATIN 20 MG TAB PO SCH (22:38)
[2022-10-03] VITALS (7 sets, daily range): BP systolic 89–118; BP diastolic 52–72
[2022-10-03] MEDS: IPRATROPIUM BROM 0.5 MG/2.5ML INH SOL NEB SCH ×5 (00:30→23:31)
[2022-10-03] MEDS: ALBUTEROL SULF 2.5 MG/0.5ML(0.5%) NEB SOLN NEB SCH ×5 (00:30→23:31)
[2022-10-03 06:17] LABS: Basophils # (auto) 0 10 ^3/uL (0-0.2); Basophils % (auto) 0.1 % (0.0-2.0); Eosinophils # (auto) 0 10 ^3/uL (0-0.8); Eosinophils % (auto) 0.1 % (0.0-7.0); Hemoglobin 13.1 g/dL (13.5-17.5); Lymphocytes # (auto) 0.4 10 ^3/uL (0.4-5.4); Lymphocytes % (auto) 7.5 % (10.0-50.0); Mean Corpuscular Hemoglobin 30.8 pg (28.0-32.0); Mean Corpuscular Hgb Conc. 35.4 g/dL (32.0-36.0); Mean Corpuscular Volume 86.9 fL (80.0-100.0); Monocytes # (auto) 0.3 10 ^3/uL (0-1.3); Monocytes % (auto) 5.9 % (0.0-12.0); Neutrophils % (auto) 86.4 % (37.0-80.0); Red Blood Cells 4.26 10^6/uL (4.5-5.90); Red Cell Distribution Width 14.5 % (11.8-14.3); White Blood Cell 5.8 10^3/uL (4.4-10.8)
[2022-10-03] MEDS: Glucerna Carbsteady SHAKE Vanilla 8oz PO SCH ×4 (06:24→22:16)
[2022-10-03] MEDS: ACCU-CHEK COMFORT CURVE STRIP VI SCH ×4 (06:25→22:17)
[2022-10-03] MEDS: InsuLIN REG 1unit/0.01ml Soln (100units/ml) SC SCH ×4 (06:25→22:14)
[2022-10-03 06:37] LABS: BUN/Creatinine Ratio 30.8 (10.0-20.0); Calcium 9.1 mg/dL (8.5-10.1); Potassium 4.4 mmol/L (3.5-5.1)
[2022-10-03] MEDS: ASPirin 81 mg TAB PO SCH (09:17)
[2022-10-03] MEDS: methylPREDNISolone SOD SUCC 125 MG/2 ML VL IV SCH ×2 (09:18→20:53)
[2022-10-03] MEDS: PANTOPRAZOLE 40 MG/10 ML VIAL INJ IV SCH (09:18)
[2022-10-03] MEDS: ENOXAPARIN SOD 40 MG/0.4 ML SYRINGE SC SCH (09:19)
[2022-10-03] MEDS: METOPROLOL TARTRATE 25 MG TAB PO SCH ×2 (09:35→22:13)
[2022-10-03] MEDS: ATORVASTATIN 20 MG TAB PO SCH (22:12)
[2022-10-04] VITALS (7 sets, daily range): BP systolic 89–124; BP diastolic 52–81
[2022-10-04] MEDS: Glucerna Carbsteady SHAKE Vanilla 8oz PO SCH ×3 (06:15→18:39)
[2022-10-04 06:26] LABS: Hematocrit 38.1 % (41.0-53.0); Hemoglobin 13.2 g/dL (13.5-17.5); Mean Corpuscular Hemoglobin 30.3 pg (28.0-32.0); Mean Corpuscular Hgb Conc. 34.6 g/dL (32.0-36.0); Mean Corpuscular Volume 87.5 fL (80.0-100.0); Red Blood Cells 4.35 10^6/uL (4.5-5.90); Red Cell Distribution Width 13.8 % (11.8-14.3); White Blood Cell 6.7 10^3/uL (4.4-10.8)
[2022-10-04] MEDS: ALBUTEROL SULF 2.5 MG/0.5ML(0.5%) NEB SOLN NEB SCH ×4 (06:29→18:34)
[2022-10-04] MEDS: IPRATROPIUM BROM 0.5 MG/2.5ML INH SOL NEB SCH ×4 (06:29→18:34)
[2022-10-04] MEDS: InsuLIN REG 1unit/0.01ml Soln (100units/ml) SC SCH ×3 (06:33→16:33)
[2022-10-04] MEDS: ACCU-CHEK COMFORT CURVE STRIP VI SCH ×3 (06:33→16:32)
[2022-10-04 06:39] LABS: Calcium 8.8 mg/dL (8.5-10.1); Potassium 4.4 mmol/L (3.5-5.1)
[2022-10-04 06:59] LABS: Band Neutrophils % (manual) 0; Basophils % (manual) 0 (0.0-2.0); Blast Cells 0; Eosinophils % (manual) 0 (0-7); Metamyelocytes % 0; Myelocytes % 0; Promyelocytes % 0; Reactive Lymphocytes 0
[2022-10-04 08:56] LABS: Lymphocytes % (manual) 17 (10.0-50.0); Monocytes % (manual) 3 (0-12)
[2022-10-04] MEDS: METOPROLOL TARTRATE 25 MG TAB PO SCH (09:36)
[2022-10-04] MEDS: ASPirin 81 mg TAB PO SCH (09:36)
[2022-10-04] MEDS: ENOXAPARIN SOD 40 MG/0.4 ML SYRINGE SC SCH (09:36)
[2022-10-04] MEDS: methylPREDNISolone SOD SUCC 125 MG/2 ML VL IV SCH (09:37)
[2022-10-04] MEDS: PANTOPRAZOLE 40 MG/10 ML VIAL INJ IV SCH (09:37)
[2022-10-04] MEDS ORDERED: PRED20TA2 PO (12:46)
== END 2022-10-04 19:04 | disposition home or self-care (01) | DRG 140 ==
LOC: ER 14:59 → EDBD 14:59 → TELE 10-01 04:30 → TELE-WESTW 10-01 22:10 → WEST WING 10-03 22:14 → TELE-WESTW 10-03 22:17
PROVIDERS: ADMIT Registered Nurse; ATTEND Internal Medicine Pulmonary Disease
DX: J44.1 Chronic obstructive pulmonary disease with (acute) exacerbation (principal); J96.21 Acute and chronic respiratory failure with hypoxia; R64 Cachexia; I25.110 Atherosclerotic heart disease of native coronary artery with unstable angina pectoris; J43.9 Emphysema, unspecified; E78.5 Hyperlipidemia, unspecified; E11.9 Type 2 diabetes mellitus without complications; F17.210 Nicotine dependence, cigarettes, uncomplicated; I10 Essential (primary) hypertension; Z20.822 Contact with and (suspected) exposure to COVID-19; R79.89 Other specified abnormal findings of blood chemistry; Z85.118 Personal history of other malignant neoplasm of bronchus and lung; Z85.828 Personal history of other malignant neoplasm of skin; Z87.442 Personal history of urinary calculi; Z79.82 Long term (current) use of aspirin; Z82.49 Family history of ischemic heart disease and other diseases of the circulatory system; Z98.61 Coronary angioplasty status; Z68.1 Body mass index [BMI] 19.9 or less, adult
CPT/HCPCS: 36415; 71045; 71275; 78452; 80048; 80053; 80061; 80307; 81001; 82962; 83036; 83880; 84132; 84443; 84484; 85007; 85025; 85027; 85379; 87426; 93005; 93017; 93306; 93971; 94640; 96372; 96374; 96375; 96376; 97110; 97116; 97163; 97530; C9113; G0378; J1815

== ENCOUNTER 2023-02-14 14:04 | Inpatient (IN) | payer MEDICAID ==
[~2023-02-14] VITALS: Ht 365.8 cm; Wt 68.3 kg
[~2023-02-14 14:04] MED LIST changes: -AMOX500T86 PO
[2023-02-14] MEDS ORDERED: SODIUM CHLORIDE 0.9% 2,100 ML IV ONE (14:30)
[2023-02-14 14:37] VITALS: PULSE 75; RESP 11; O2SAT 96
[2023-02-14 15:01] LABS: Basophils # (auto) 0.2 10 ^3/uL (0-0.2); Basophils % (auto) 2.8 % (0.0-2.0); Eosinophils # (auto) 0.1 10 ^3/uL (0-0.8); Eosinophils % (auto) 1.7 % (0.0-7.0); Hematocrit 44.7 % (41.0-53.0); Hemoglobin 15.3 g/dL (13.5-17.5); Lymphocytes # (auto) 0.8 10 ^3/uL (0.4-5.4); Lymphocytes % (auto) 13.8 % (10.0-50.0); Mean Corpuscular Hemoglobin 29.4 pg (28.0-32.0); Mean Corpuscular Hgb Conc. 34.3 g/dL (32.0-36.0); Mean Corpuscular Volume 85.7 fL (80.0-100.0); Monocytes # (auto) 0.3 10 ^3/uL (0-1.3); Monocytes % (auto) 5.7 % (0.0-12.0); Neutrophils # (auto) 4.6 10 ^3/uL (1.6-8.6); Nucleated Red Blood Cells % 0.1 %; Red Blood Cells 5.21 10^6/uL (4.5-5.90); Red Cell Distribution Width 13.3 % (11.8-14.3); White Blood Cell 6.1 10^3/uL (4.4-10.8)
[2023-02-14 15:07] LABS: INR 1.09 (0.9-1.15); Prothrombin Time 11.4 sec (9.3-11.8)
[2023-02-14 15:11] VITALS: PULSE 70; RESP 15; O2SAT 99
[2023-02-14 15:40] LABS: Albumin 3.6 g/dL (3.4-5.0); Potassium 4.2 mmol/L (3.5-5.1)
[2023-02-14 15:45] LABS: BUN/Creatinine Ratio 14.1 (10.0-20.0); Bilirubin, Total 0.7 mg/dL (0.2-1.0)
[2023-02-14] MEDS ORDERED: ASPirin 81 mg TAB PO ONE (16:45)
[2023-02-14] MEDS ORDERED: DOCUSATE SOD 100 MG CAP PO PRN (17:00)
[2023-02-14] MEDS ORDERED: NITROGLYCERIN 0.4 MG SL TAB SL PRN (17:00)
[2023-02-14] MEDS ORDERED: MECLIZINE HCL 25 MG TAB PO PRN (17:00)
[2023-02-14] MEDS ORDERED: MORPHINE SULFATE INJ 2 MG/ml SYRG IV PRN (17:00)
[2023-02-14 18:03] LABS: Urine WBC None Seen /hpf (0 - 3)
[2023-02-14 18:22] LABS: Urine Bacteria NONE SEEN /hpf (None Seen); Urine Blood Negative /uL (Negative); Urine Clarity Clear (Clear); Urine Protein, UAD Negative (Negative); Urine Specific Gravity 1.008 (1.001-1.035); Urine Urobilinogen Normal (Negative); Urine pH 6.5 (5.0-8.0)
[2023-02-14 18:23] LABS: Urine Color Straw (Yellow)
[2023-02-14] MEDS: SODIUM CHLORIDE 0.9% 1,000 ML IV SCH (18:27)
[2023-02-14 18:35] VITALS: O2SAT 94
[2023-02-14 19:30] VITALS: PULSE 66; RESP 16; O2SAT 95
[2023-02-14 20:55] VITALS: PULSE 57; RESP 19; O2SAT 99
[2023-02-14 21:03] VITALS: PULSE 60; RESP 20
[2023-02-14] MEDS: IPRATROPIUM BROM 0.5 MG/2.5ML INH SOL NEB PRN (23:21)
[2023-02-14] MEDS: ALBUTEROL SULF 2.5 MG/0.5ML(0.5%) NEB SOLN NEB PRN (23:21)
[2023-02-15] VITALS (12 sets, daily range): BP systolic 101–134; BP diastolic 63–83; PULSE 45–85; RESP 11–20; TEMP 37; O2SAT 94–99
[2023-02-15] MEDS: SODIUM CHLORIDE 0.9% 1,000 ML IV SCH ×3 (03:00→23:00)
[2023-02-15 06:04] LABS: Basophils # (auto) 0 10 ^3/uL (0-0.2); Basophils % (auto) 0.7 % (0.0-2.0); Eosinophils # (auto) 0.1 10 ^3/uL (0-0.8); Eosinophils % (auto) 1.3 % (0.0-7.0); Hematocrit 40.5 % (41.0-53.0); Hemoglobin 13.9 g/dL (13.5-17.5); Lymphocytes # (auto) 1.5 10 ^3/uL (0.4-5.4); Lymphocytes % (auto) 29.7 % (10.0-50.0); Mean Corpuscular Hemoglobin 29.6 pg (28.0-32.0); Mean Corpuscular Hgb Conc. 34.2 g/dL (32.0-36.0); Mean Corpuscular Volume 86.4 fL (80.0-100.0); Monocytes # (auto) 0.4 10 ^3/uL (0-1.3); Monocytes % (auto) 8.2 % (0.0-12.0); Neutrophils # (auto) 2.9 10 ^3/uL (1.6-8.6); Neutrophils % (auto) 60.1 % (37.0-80.0); Nucleated Red Blood Cells % 0.1 %; Red Blood Cells 4.69 10^6/uL (4.5-5.90); Red Cell Distribution Width 13.6 % (11.8-14.3); White Blood Cell 4.9 10^3/uL (4.4-10.8)
[2023-02-15 06:17] LABS: Albumin 3.2 g/dL (3.4-5.0); Calcium 8.7 mg/dL (8.5-10.1); Potassium 4.3 mmol/L (3.5-5.1)
[2023-02-15 06:22] LABS: BUN/Creatinine Ratio 13.3 (10.0-20.0); Bilirubin, Total 0.6 mg/dL (0.2-1.0); Total Protein 5.6 g/dL (6.4-8.2)
[2023-02-15] MEDS: ASPirin-EC 81 mg tab PO SCH (10:24)
[2023-02-15] MEDS: PANTOPRAZOLE 40 MG TAB PO SCH (10:24)
[2023-02-15] MEDS: IPRATROPIUM BROM 0.5 MG/2.5ML INH SOL NEB PRN ×2 (10:28→16:59)
[2023-02-15] MEDS: ALBUTEROL SULF 2.5 MG/0.5ML(0.5%) NEB SOLN NEB PRN ×2 (10:28→16:59)
[2023-02-15] MEDS ORDERED: IPRAAER6 IN (18:34)
[2023-02-16] VITALS (11 sets, daily range): BP systolic 125–159; BP diastolic 77–90; PULSE 50–98; RESP 15–86; TEMP 97.4–98.2; O2SAT 93–99
[2023-02-16] MEDS: ALBUTEROL SULF 2.5 MG/0.5ML(0.5%) NEB SOLN NEB PRN ×2 (07:39→14:27)
[2023-02-16] MEDS: IPRATROPIUM BROM 0.5 MG/2.5ML INH SOL NEB PRN ×2 (07:39→14:27)
[2023-02-16] MEDS: SODIUM CHLORIDE 0.9% 1,000 ML IV SCH ×2 (09:00→17:39)
[2023-02-16] MEDS: PANTOPRAZOLE 40 MG TAB PO SCH (09:33)
[2023-02-16] MEDS: ASPirin-EC 81 mg tab PO SCH (09:33)
[2023-02-16] MEDS ORDERED: HYDROcodone-ACET 5/325MG TAB PO PRN (23:45)
[2023-02-17] VITALS (12 sets, daily range): BP systolic 111–168; BP diastolic 75–95; PULSE 64–87; RESP 14–20; TEMP 36.5; O2SAT 93–99
[2023-02-17] MEDS: SODIUM CHLORIDE 0.9% 1,000 ML IV SCH ×2 (05:00→10:08)
[2023-02-17] MEDS: IPRATROPIUM BROM 0.5 MG/2.5ML INH SOL NEB PRN (08:09)
[2023-02-17] MEDS: ALBUTEROL SULF 2.5 MG/0.5ML(0.5%) NEB SOLN NEB PRN (08:09)
[2023-02-17] MEDS: PANTOPRAZOLE 40 MG TAB PO SCH (10:00)
[2023-02-17] MEDS: ASPirin-EC 81 mg tab PO SCH (10:00)
[2023-02-17] MEDS: amLODIPine BESYLATE 5 MG TAB PO SCH (10:04)
[2023-02-17] MEDS: ACETAMINOPHEN 325 MG TAB PO PRN ×2 (12:28→20:24)
[2023-02-17] MEDS: IPRATROPIUM BROM 0.5 MG/2.5ML INH SOL NEB SCH (18:49)
[2023-02-17] MEDS: ALBUTEROL SULF 2.5 MG/0.5ML(0.5%) NEB SOLN NEB SCH (18:49)
[2023-02-18] VITALS (8 sets, daily range): BP systolic 113–124; BP diastolic 79–88; PULSE 59–85; RESP 14–18; TEMP 98–98.2; O2SAT 92–97
[2023-02-18] MEDS: SODIUM CHLORIDE 0.9% 1,000 ML IV SCH ×2 (01:00→10:11)
[2023-02-18] MEDS: ALBUTEROL SULF 2.5 MG/0.5ML(0.5%) NEB SOLN NEB SCH ×2 (06:32→13:33)
[2023-02-18] MEDS: IPRATROPIUM BROM 0.5 MG/2.5ML INH SOL NEB SCH ×2 (06:32→13:33)
[2023-02-18] MEDS: ASPirin-EC 81 mg tab PO SCH (10:05)
[2023-02-18] MEDS: amLODIPine BESYLATE 5 MG TAB PO SCH (10:06)
[2023-02-18] MEDS: PANTOPRAZOLE 40 MG TAB PO SCH (10:06)
[2023-02-18] MEDS: ACETAMINOPHEN 325 MG TAB PO PRN (10:07)
[2023-02-18] MEDS ORDERED: MECL25CH85 PO (13:58)
[2023-02-18] MEDS ORDERED: AMLO1TAB23 PO (13:58)
== END 2023-02-18 17:29 | disposition home or self-care (01) | DRG 201 ==
LOC: EDBD 14:04 → ER 14:04 → TELE 16:56 → TELE-WESTW 02-15 17:28
PROVIDERS: ADMIT Nurse Practitioner Family; ATTEND Family Medicine
DX: R00.1 Bradycardia, unspecified (principal); J96.20 Acute and chronic respiratory failure, unspecified whether with hypoxia or hypercapnia; R64 Cachexia; I95.1 Orthostatic hypotension; E86.0 Dehydration; E11.9 Type 2 diabetes mellitus without complications; I10 Essential (primary) hypertension; J43.9 Emphysema, unspecified; I25.10 Atherosclerotic heart disease of native coronary artery without angina pectoris; I25.2 Old myocardial infarction; Z87.442 Personal history of urinary calculi; Z98.61 Coronary angioplasty status; Z85.89 Personal history of malignant neoplasm of other organs and systems; Z87.891 Personal history of nicotine dependence; Z80.1 Family history of malignant neoplasm of trachea, bronchus and lung; Z82.49 Family history of ischemic heart disease and other diseases of the circulatory system; Z68.1 Body mass index [BMI] 19.9 or less, adult
CPT/HCPCS: 36415; 70450; 71045; 74176; 80053; 81001; 82962; 83690; 84484; 85025; 85610; 93005; 93306; 93886; 94640; 96360; 97110; 97116; 97163; 97530; G0378

== ENCOUNTER 2023-12-15 09:56 | Emergency (ER) | payer MEDICAID ==
[~2023-12-15] VITALS: Ht 182.9 cm; Wt 79.5 kg
[~2023-12-15 09:56] MED LIST changes: -ALB5IS NEB; +AMLO1TAB23 PO; -FLUT110A INH; -IPR002IS NEB; +IPRAAER6 IN; -IPRIH IN; +MECL25CH85 PO
[2023-12-15 10:51] LABS: Basophils # (auto) 0 10 ^3/uL (0-0.2); Basophils % (auto) 0.9 % (0.0-2.0); Eosinophils # (auto) 0 10 ^3/uL (0-0.8); Eosinophils % (auto) 0.5 % (0.0-7.0); Hematocrit 40.2 % (41.0-53.0); Hemoglobin 13.7 g/dL (13.5-17.5); Lymphocytes # (auto) 0.9 10 ^3/uL (0.4-5.4); Lymphocytes % (auto) 25.3 % (10.0-50.0); Mean Corpuscular Hemoglobin 28.4 pg (28.0-32.0); Mean Corpuscular Hgb Conc. 33.9 g/dL (32.0-36.0); Mean Corpuscular Volume 83.7 fL (80.0-100.0); Monocytes # (auto) 0.2 10 ^3/uL (0-1.3); Neutrophils # (auto) 2.5 10 ^3/uL (1.6-8.6); Neutrophils % (auto) 67.3 % (37.0-80.0); Red Cell Distribution Width 13.8 % (11.8-14.3); White Blood Cell 3.7 10^3/uL (4.4-10.8)
[2023-12-15 11:12] LABS: INR 1.08 (0.9-1.15); Partial Thromboplastin Time 28.7 SEC (24.5-34.5); Prothrombin Time 11.4 sec (9.3-11.8)
[2023-12-15 11:37] LABS: Alanine Aminotransferase 18 U/L (7-40); Albumin 4.4 g/dL (3.2-4.8); Alkaline Phosphatase 64 U/L (46-116); Anion Gap 1 (5-15); Aspartate Aminotransferase 14 U/L (13-40); BUN/Creatinine Ratio 13.5 (10.0-20.0); Blood Urea Nitrogen 12 mg/dL (9-23); Carbon Dioxide 32 mmol/L (20-30); Chloride 102 mmol/L (98-107); Glucose 98 mg/dL (74-106); Potassium 4.8 mmol/L (3.5-5.1); Sodium 135 mmol/L (136-145)
[2023-12-15 11:38] LABS: Bilirubin, Total 0.8 mg/dL (0.2-1.0); Total Protein 6.4 g/dL (5.7-8.2)
[2023-12-15 12:00] VITALS: TEMP 97.7
[2023-12-15 12:50] VITALS: PULSE 61; RESP 15; O2SAT 94
[2023-12-15 15:20] LABS: Urine Bacteria None Seen /hpf (None Seen); Urine Blood Negative /uL (Negative); Urine Clarity Clear (Clear); Urine Color Yellow (Yellow); Urine Mucus FEW (None Seen); Urine Protein, UAD Negative (Negative); Urine Specific Gravity 1.019 (1.001-1.035); Urine Urobilinogen Normal (Negative); Urine WBC 1 /hpf (0 - 3)
[2023-12-15] MEDS ORDERED: RIV20T PO (15:59)
[2023-12-15 16:35] VITALS: BP 135/87; PULSE 59; RESP 14; O2SAT 99
== END 2023-12-15 16:56 | disposition home or self-care (01) ==
LOC: ER 09:56 → EDBD 09:56 → EDSEX 09:56 → ER 16:54
DX: I26.99 Other pulmonary embolism without acute cor pulmonale (principal); F17.210 Nicotine dependence, cigarettes, uncomplicated; J45.909 Unspecified asthma, uncomplicated; I25.10 Atherosclerotic heart disease of native coronary artery without angina pectoris; J44.9 Chronic obstructive pulmonary disease, unspecified; I10 Essential (primary) hypertension; Z87.442 Personal history of urinary calculi; Z85.828 Personal history of other malignant neoplasm of skin; I25.2 Old myocardial infarction; Z95.0 Presence of cardiac pacemaker; Z90.89 Acquired absence of other organs; Z88.8 Allergy status to other drugs, medicaments and biological substances
CPT/HCPCS: 36415; 71045; 71275; 80053; 81001; 83605; 83690; 83880; 84484; 85025; 85379; 85610; 85730; 87040; 93970

== ENCOUNTER 2024-03-05 20:30 | Inpatient (IN) | payer MEDICAID ==
[~2024-03-05] VITALS: Ht 182.9 cm; Wt 68.9 kg
[~2024-03-05 20:30] MED LIST changes: +RIV20T PO
[2024-03-05] MEDS: ALBUTEROL SULF 2.5 MG/0.5ML(0.5%) NEB SOLN NEB ONE (21:28)
[2024-03-05] MEDS: IPRATROPIUM BROM 0.5 MG/2.5ML INH SOL NEB ONE (21:28)
[2024-03-05 21:38] LABS: Basophils # (auto) 0 10 ^3/uL (0-0.2); Basophils % (auto) 0.4 % (0.0-2.0); Eosinophils # (auto) 0.1 10 ^3/uL (0-0.8); Eosinophils % (auto) 1.5 % (0.0-7.0); Hematocrit 40.1 % (41.0-53.0); Hemoglobin 13.8 g/dL (13.5-17.5); Lymphocytes # (auto) 1.4 10 ^3/uL (0.4-5.4); Lymphocytes % (auto) 24.3 % (10.0-50.0); Mean Corpuscular Hemoglobin 29.2 pg (28.0-32.0); Mean Corpuscular Hgb Conc. 34.3 g/dL (32.0-36.0); Mean Corpuscular Volume 85.1 fL (80.0-100.0); Monocytes # (auto) 0.5 10 ^3/uL (0-1.3); Monocytes % (auto) 8.5 % (0.0-12.0); Neutrophils # (auto) 3.7 10 ^3/uL (1.6-8.6); Neutrophils % (auto) 65.3 % (37.0-80.0); Nucleated Red Blood Cells % 0.1 %; Platelet Count (auto) 174 10^3/uL (140-450); Red Blood Cells 4.72 10^6/uL (4.5-5.90); Red Cell Distribution Width 15.5 % (11.8-14.3); White Blood Cell 5.7 10^3/uL (4.4-10.8)
[2024-03-05 21:52] LABS: Alanine Aminotransferase 23 U/L (7-40); Alkaline Phosphatase 59 U/L (46-116); Anion Gap 5 (5-15); Aspartate Aminotransferase 18 U/L (13-40); BUN/Creatinine Ratio 14.5 (10.0-20.0); Blood Urea Nitrogen 12 mg/dL (9-23); Calcium 9.5 mg/dL (8.7-10.4); Carbon Dioxide 26 mmol/L (20-30); Chloride 106 mmol/L (98-107); Glucose 112 mg/dL (74-106); Potassium 3.5 mmol/L (3.5-5.1); Sodium 137 mmol/L (136-145)
[2024-03-05 21:53] LABS: Albumin 4.2 g/dL (3.2-4.8); Bilirubin, Total 0.6 mg/dL (0.2-1.0); Total Protein 6.2 g/dL (5.7-8.2)
[2024-03-06] VITALS (9 sets, daily range): BP systolic 100–109; BP diastolic 63–68; PULSE 59–101; RESP 13–18; TEMP 98; O2SAT 91–100
[2024-03-06] MEDS: IOHEXOL 350 MG/ML 100ML IJ ONE (01:20)
[2024-03-06] MEDS: methylPREDNISolone SOD SUCC 125 MG/2 ML VL IV ONE (01:48)
[2024-03-06 07:51] LABS: Urine Bacteria None Seen /hpf (None Seen)
[2024-03-06 08:40] LABS: Urine Blood Negative /uL (Negative); Urine Clarity Clear (Clear); Urine Color Yellow (Yellow); Urine Mucus FEW (None Seen); Urine Protein, UAD TRACE (Negative); Urine Urobilinogen Normal (Negative); Urine WBC 1 /hpf (0 - 3); Urine pH 5.5 (5.0-9.0)
[2024-03-06 08:55] LABS: Urine Specific Gravity > 1.050 (1.001-1.035)
[2024-03-06] MEDS ORDERED: HYDROmorphone HCL 2 MG/ML VL/or syr IV PRN (10:45)
[2024-03-06] MEDS ORDERED: DOCUSATE SOD 100 MG CAP PO PRN (10:45)
[2024-03-06] MEDS ORDERED: HYDROcodone-ACET 5/325MG TAB PO PRN (10:45)
[2024-03-06] MEDS ORDERED: ENOXAPARIN SOD 40 MG/0.4 ML SYRINGE SC SCH (10:45)
[2024-03-06] MEDS ORDERED: ACETAMINOPHEN 325 MG TAB PO PRN (10:45)
[2024-03-06] MEDS ORDERED: ONDANSETRON HCL 4 MG/2 ML VIAL IV PRN (10:45)
[2024-03-06] MEDS: ALBUTEROL SULF 2.5 MG/0.5ML(0.5%) NEB SOLN NEB SCH ×2 (11:56→19:58)
[2024-03-06] MEDS: IPRATROPIUM BROM 0.5 MG/2.5ML INH SOL NEB SCH ×2 (11:56→19:58)
[2024-03-06] MEDS: methylPREDNISolone SOD SUCC 125 MG/2 ML VL IV SCH (12:21)
[2024-03-06] MEDS: SODIUM CHLOR 0.9% PF (SALINE LOCK) 10ML VIAL/SYR IV SCH (14:03)
[2024-03-06] MEDS: RIVAROXABAN 20 MG TAB PO SCH (19:54)
[2024-03-07] VITALS (20 sets, daily range): BP systolic 101–113; BP diastolic 63–71; PULSE 74–112; RESP 16–20; TEMP 97.4–97.9; O2SAT 91–99
[2024-03-07] MEDS ORDERED: LORA-1121 PO (04:37)
[2024-03-07 06:36] LABS: Alanine Aminotransferase 24 U/L (7-40); Albumin 4.2 g/dL (3.2-4.8); Alkaline Phosphatase 52 U/L (46-116); Anion Gap 8 (5-15); Aspartate Aminotransferase 19 U/L (13-40); BUN/Creatinine Ratio 22.5 (10.0-20.0); Bilirubin, Total 0.5 mg/dL (0.2-1.0); Blood Urea Nitrogen 20 mg/dL (9-23); Calcium 10.2 mg/dL (8.7-10.4); Carbon Dioxide 26 mmol/L (20-30); Chloride 103 mmol/L (98-107); Glucose 174 mg/dL (74-106); Potassium 3.9 mmol/L (3.5-5.1); Sodium 137 mmol/L (136-145); Total Protein 6.3 g/dL (5.7-8.2)
[2024-03-07 06:37] LABS: Basophils # (auto) 0 10 ^3/uL (0-0.2); Basophils % (auto) 0.1 % (0.0-2.0); Eosinophils # (auto) 0 10 ^3/uL (0-0.8); Hematocrit 38.1 % (41.0-53.0); Hemoglobin 13.5 g/dL (13.5-17.5); Lymphocytes # (auto) 0.4 10 ^3/uL (0.4-5.4); Mean Corpuscular Hemoglobin 29.7 pg (28.0-32.0); Mean Corpuscular Hgb Conc. 35.5 g/dL (32.0-36.0); Mean Corpuscular Volume 83.6 fL (80.0-100.0); Monocytes # (auto) 0.5 10 ^3/uL (0-1.3); Monocytes % (auto) 5.1 % (0.0-12.0); Neutrophils # (auto) 8.9 10 ^3/uL (1.6-8.6); Neutrophils % (auto) 90.8 % (37.0-80.0); Nucleated Red Blood Cells % 0.2 %; Platelet Count (auto) 203 10^3/uL (140-450); Red Blood Cells 4.56 10^6/uL (4.5-5.90); Red Cell Distribution Width 15.7 % (11.8-14.3); White Blood Cell 9.8 10^3/uL (4.4-10.8)
[2024-03-07] MEDS: ASPirin 81 mg TAB PO SCH (10:03)
[2024-03-07] MEDS: PANTOPRAZOLE 40 MG/10 ML VIAL INJ IV SCH (10:03)
[2024-03-07] MEDS: amLODIPine BESYLATE 5 MG TAB PO SCH (10:03)
[2024-03-07] MEDS ORDERED: PANT40TA2 PO (11:19)
[2024-03-07] MEDS ORDERED: PROC10TA6 PO (11:19)
[2024-03-07] MEDS ORDERED: APIX5TAB PO (11:19)
[2024-03-07] MEDS ORDERED: LORA-655 PO (11:19)
[2024-03-07] MEDS ORDERED: CLON0.1T PO (11:19)
[2024-03-07] MEDS ORDERED: TAMS0.4C39 PO (11:19)
[2024-03-07] MEDS ORDERED: SENN-58 PO (12:00)
[2024-03-07] MEDS ORDERED: ENALAPRILAT 1.25 MG/ML-1ML VIAL IV PRN (15:15)
[2024-03-07] MEDS: BUDESONIDE (INHALATION) 0.5 MG/2 ML NEB NEB SCH (19:37)
[2024-03-07] MEDS: LORazepam 0.5 MG TAB PO SCH (21:43)
[2024-03-07] MEDS: PANTOPRAZOLE 40 MG TAB PO SCH (21:43)
[2024-03-07] MEDS: APIXABAN 5 MG TAB PO SCH (21:43)
[2024-03-08] VITALS (21 sets, daily range): BP systolic 101–122; BP diastolic 66–74; PULSE 65–124; RESP 14–20; TEMP 97.4–98.2; O2SAT 90–99
[2024-03-08 07:19] LABS: Basophils # (auto) 0 10 ^3/uL (0-0.2); Basophils % (auto) 0.1 % (0.0-2.0); Eosinophils # (auto) 0 10 ^3/uL (0-0.8); Hematocrit 36.9 % (41.0-53.0); Hemoglobin 12.7 g/dL (13.5-17.5); Lymphocytes # (auto) 0.4 10 ^3/uL (0.4-5.4); Lymphocytes % (auto) 3.8 % (10.0-50.0); Mean Corpuscular Hemoglobin 29.2 pg (28.0-32.0); Mean Corpuscular Hgb Conc. 34.5 g/dL (32.0-36.0); Mean Corpuscular Volume 84.6 fL (80.0-100.0); Monocytes # (auto) 0.7 10 ^3/uL (0-1.3); Neutrophils # (auto) 9.6 10 ^3/uL (1.6-8.6); Neutrophils % (auto) 89.1 % (37.0-80.0); Platelet Count (auto) 230 10^3/uL (140-450); Red Blood Cells 4.36 10^6/uL (4.5-5.90); Red Cell Distribution Width 16.2 % (11.8-14.3); White Blood Cell 10.8 10^3/uL (4.4-10.8)
[2024-03-08 07:21] LABS: Alanine Aminotransferase 27 U/L (7-40); Alkaline Phosphatase 45 U/L (46-116); Anion Gap 8 (5-15); Calcium 9.9 mg/dL (8.7-10.4); Carbon Dioxide 26 mmol/L (20-30); Chloride 105 mmol/L (98-107); Glucose 135 mg/dL (74-106); Potassium 4.2 mmol/L (3.5-5.1); Sodium 139 mmol/L (136-145)
[2024-03-08 07:22] LABS: Blood Urea Nitrogen 21 mg/dL (9-23)
[2024-03-08 07:23] LABS: Aspartate Aminotransferase 19 U/L (13-40)
[2024-03-08 07:24] LABS: Bilirubin, Total 0.4 mg/dL (0.2-1.0); Total Protein 5.9 g/dL (5.7-8.2)
[2024-03-08] MEDS: TAMSULOSIN HYDROCHLORIDE 0.4 MG CAP PO SCH (10:19)
[2024-03-08] MEDS: dilTIAZem 120MG ER CAP PO SCH (10:19)
[2024-03-08] MEDS: predniSONE 20 MG TAB PO SCH (10:20)
[2024-03-09] VITALS (20 sets, daily range): BP systolic 93–108; BP diastolic 53–69; PULSE 63–93; RESP 18–22; TEMP 36.7; O2SAT 92–99
[2024-03-09 06:49] LABS: Hematocrit 35.9 % (41.0-53.0); Hemoglobin 12.3 g/dL (13.5-17.5); Mean Corpuscular Hemoglobin 28.9 pg (28.0-32.0); Mean Corpuscular Hgb Conc. 34.2 g/dL (32.0-36.0); Mean Corpuscular Volume 84.7 fL (80.0-100.0); Platelet Count (auto) 199 10^3/uL (140-450); Red Blood Cells 4.24 10^6/uL (4.5-5.90); Red Cell Distribution Width 16.3 % (11.8-14.3); White Blood Cell 8.8 10^3/uL (4.4-10.8)
[2024-03-09 06:58] LABS: Band Neutrophils % (manual) 0; Basophils % (manual) 0 (0.0-2.0); Blast Cells 0; Eosinophils % (manual) 0 (0-7); Metamyelocytes % 0; Myelocytes % 0; Promyelocytes % 0; Reactive Lymphocytes 0
[2024-03-09 07:08] LABS: Alanine Aminotransferase 27 U/L (7-40); Albumin 3.6 g/dL (3.2-4.8); Alkaline Phosphatase 40 U/L (46-116); Anion Gap 7 (5-15); Aspartate Aminotransferase 13 U/L (13-40); BUN/Creatinine Ratio 21.1 (10.0-20.0); Bilirubin, Total 0.7 mg/dL (0.2-1.0); Blood Urea Nitrogen 15 mg/dL (9-23); Calcium 9.5 mg/dL (8.7-10.4); Carbon Dioxide 25 mmol/L (20-30); Chloride 105 mmol/L (98-107); Glucose 107 mg/dL (74-106); Potassium 3.7 mmol/L (3.5-5.1); Sodium 137 mmol/L (136-145); Total Protein 5.3 g/dL (5.7-8.2)
[2024-03-09 07:59] LABS: Lymphocytes % (manual) 12 (10.0-50.0); Monocytes % (manual) 12 (0-12); Platelet Estimate Adequate; RBC Morphology Normal
[2024-03-09] MEDS ORDERED: PRED20TA2 PO (11:07)
[2024-03-09 18:06] LABS: Base Excess -0.3 mmol/L (-2.0-3.0)
== END 2024-03-09 20:20 | disposition home health service (06) | DRG 140 ==
LOC: EDBD 20:30 → ER 20:30 → TELE 03-06 10:39 → TELE-E-ADS 03-06 17:04
PROVIDERS: ADMIT Internal Medicine; ATTEND Nurse Practitioner Acute Care
DX: J44.1 Chronic obstructive pulmonary disease with (acute) exacerbation (principal); J96.21 Acute and chronic respiratory failure with hypoxia; C76.0 Malignant neoplasm of head, face and neck; E11.9 Type 2 diabetes mellitus without complications; I10 Essential (primary) hypertension; F17.210 Nicotine dependence, cigarettes, uncomplicated; F41.9 Anxiety disorder, unspecified; I25.10 Atherosclerotic heart disease of native coronary artery without angina pectoris; Z99.81 Dependence on supplemental oxygen; Z88.8 Allergy status to other drugs, medicaments and biological substances; Z85.828 Personal history of other malignant neoplasm of skin; Z87.442 Personal history of urinary calculi; I25.2 Old myocardial infarction; Z98.61 Coronary angioplasty status; Z86.711 Personal history of pulmonary embolism; Z80.1 Family history of malignant neoplasm of trachea, bronchus and lung; Z82.49 Family history of ischemic heart disease and other diseases of the circulatory system
CPT/HCPCS: 36415; 36600; 80053; 81001; 82805; 83605; 83880; 84484; 85007; 85025; 85027; 93005; 93306; 94640; G0378; J2470

== ENCOUNTER 2024-03-11 13:57 | Inpatient (IN) | payer MEDICAID ==
[~2024-03-11] VITALS: Ht 182.9 cm; Wt 97.1 kg
[~2024-03-11 13:57] MED LIST changes: -AMLO1TAB23 PO; +APIX5TAB PO; +CLON0.1T PO; +LORA-1121 PO; +LORA-655 PO; +PANT40TA2 PO; +PROC10TA6 PO; +SENN-58 PO; +TAMS0.4C39 PO
[2024-03-11 14:34] LABS: Hemoglobin 13.9 g/dL (13.5-17.5); Mean Corpuscular Hemoglobin 29.2 pg (28.0-32.0); Mean Corpuscular Volume 86.1 fL (80.0-100.0); Platelet Count (auto) 280 10^3/uL (140-450); Red Blood Cells 4.77 10^6/uL (4.5-5.90); Red Cell Distribution Width 16.1 % (11.8-14.3); White Blood Cell 9.3 10^3/uL (4.4-10.8)
[2024-03-11 14:41] LABS: Basophils % (manual) 0 (0.0-2.0); Blast Cells 0; Metamyelocytes % 0; Promyelocytes % 0; Reactive Lymphocytes 0
[2024-03-11 14:45] VITALS: PULSE 123; RESP 18; O2SAT 97
[2024-03-11 14:52] LABS: Alanine Aminotransferase 40 U/L (7-40); Albumin 4.3 g/dL (3.2-4.8); Alkaline Phosphatase 64 U/L (46-116); Anion Gap 6 (5-15); Aspartate Aminotransferase 16 U/L (13-40); BUN/Creatinine Ratio 26.4 (10.0-20.0); Blood Urea Nitrogen 23 mg/dL (9-23); Calcium 9.8 mg/dL (8.7-10.4); Carbon Dioxide 31 mmol/L (20-30); Chloride 105 mmol/L (98-107); Glucose 100 mg/dL (74-106); Potassium 3.2 mmol/L (3.5-5.1); Sodium 142 mmol/L (136-145)
[2024-03-11 14:53] LABS: Bilirubin, Total 0.6 mg/dL (0.2-1.0); Total Protein 6.1 g/dL (5.7-8.2)
[2024-03-11 15:58] LABS: Band Neutrophils % (manual) 3; Eosinophils % (manual) 3 (0-7); Lymphocytes % (manual) 14 (10.0-50.0); Monocytes % (manual) 8 (0-12); Myelocytes % 1
[2024-03-11 15:59] LABS: Large Platelets FEW; Platelet Estimate Adequate
[2024-03-11] MEDS: POTASSIUM EFFERVESENT TAB 25 MEQ PO ONE (18:07)
[2024-03-11 18:45] LABS: Urine Bacteria None Seen /hpf (None Seen)
[2024-03-11 19:02] LABS: Urine Blood TRACE /uL (Negative); Urine Clarity Clear (Clear); Urine Color Yellow (Yellow); Urine Mucus FEW (None Seen); Urine Protein, UAD TRACE (Negative); Urine Specific Gravity 1.031 (1.001-1.035); Urine Urobilinogen Normal (Negative); Urine WBC 1 /hpf (0 - 3); Urine pH 5.5 (5.0-9.0)
[2024-03-11] MEDS: IPRATROPIUM BROM 0.5 MG/2.5ML INH SOL NEB ONE (19:35)
[2024-03-11] MEDS: ALBUTEROL SULF 2.5 MG/0.5ML(0.5%) NEB SOLN NEB ONE (19:35)
[2024-03-11] MEDS: SODIUM CHLORIDE 0.9% 1,000 ML IV ONE (19:48)
[2024-03-11] MEDS: methylPREDNISolone SOD SUCC 125 MG/2 ML VL IV ONE (19:48)
[2024-03-11 20:00] VITALS: PULSE 86; RESP 16; O2SAT 94
[2024-03-11] MEDS ORDERED: DOCUSATE SOD 100 MG CAP PO PRN (21:30)
[2024-03-11] MEDS ORDERED: HYDROcodone-ACET 5/325MG TAB PO PRN (21:30)
[2024-03-11] MEDS ORDERED: hydrALAZINE HCL 20 MG/ML VL IV PRN (21:30)
[2024-03-11 21:53] VITALS: PULSE 81; RESP 20; O2SAT 94
[2024-03-11] MEDS: ALBUTEROL SULF 2.5 MG/0.5ML(0.5%) NEB SOLN ONE (21:56)
[2024-03-11] MEDS: IPRATROPIUM BROM 0.5 MG/2.5ML INH SOL ONE (21:57)
[2024-03-11 22:01] VITALS: PULSE 83; RESP 20; O2SAT 99
[2024-03-11] MEDS: IPRATROPIUM BROM 0.5 MG/2.5ML INH SOL NEB PRN (22:13)
[2024-03-11] MEDS: ALBUTEROL SULF 2.5 MG/0.5ML(0.5%) NEB SOLN NEB PRN (22:13)
[2024-03-11] MEDS: FAMOTIDINE (10MG/ML) 2ML VL IV SCH (22:41)
[2024-03-11] MEDS: APIXABAN 5 MG TAB PO SCH (22:41)
[2024-03-11] MEDS: methylPREDNISolone SOD SUCC 40 MG/ML VL IV SCH (22:42)
[2024-03-11] MEDS: SODIUM CHLOR 0.9% PF (SALINE LOCK) 10ML VIAL/SYR IV SCH (22:42)
[2024-03-11] MEDS ORDERED: MORPHINE SULFATE INJ 2 MG/ml SYRG IV PRN (22:45)
[2024-03-11] MEDS ORDERED: NITROGLYCERIN 0.4 MG SL TAB SL PRN (22:45)
[2024-03-11 23:09] VITALS: BP 133/74; PULSE 83; RESP 20; O2SAT 94
[2024-03-12] VITALS (14 sets, daily range): BP systolic 110–136; BP diastolic 70–89; PULSE 69–92; RESP 17–20; TEMP 97.4–97.8; O2SAT 92–100
[2024-03-12 06:50] LABS: Hematocrit 35.8 % (41.0-53.0); Hemoglobin 12.3 g/dL (13.5-17.5); Mean Corpuscular Hemoglobin 29.4 pg (28.0-32.0); Mean Corpuscular Hgb Conc. 34.4 g/dL (32.0-36.0); Mean Corpuscular Volume 85.4 fL (80.0-100.0); Platelet Count (auto) 217 10^3/uL (140-450); Red Blood Cells 4.19 10^6/uL (4.5-5.90); Red Cell Distribution Width 15.6 % (11.8-14.3); White Blood Cell 6.7 10^3/uL (4.4-10.8)
[2024-03-12 06:52] LABS: Alanine Aminotransferase 33 U/L (7-40); Albumin 3.8 g/dL (3.2-4.8); Alkaline Phosphatase 48 U/L (46-116); Anion Gap 7 (5-15); Aspartate Aminotransferase 14 U/L (13-40); BUN/Creatinine Ratio 21.6 (10.0-20.0); Bilirubin, Total 0.5 mg/dL (0.2-1.0); Blood Urea Nitrogen 19 mg/dL (9-23); Calcium 9.1 mg/dL (8.7-10.4); Carbon Dioxide 28 mmol/L (20-30); Chloride 104 mmol/L (98-107); Glucose 186 mg/dL (74-106); Potassium 4.2 mmol/L (3.5-5.1); Sodium 139 mmol/L (136-145); Total Protein 5.6 g/dL (5.7-8.2)
[2024-03-12 07:02] LABS: Basophils % (manual) 0 (0.0-2.0); Blast Cells 0; Eosinophils % (manual) 0 (0-7); Myelocytes % 0; Promyelocytes % 0; Reactive Lymphocytes 0
[2024-03-12 11:18] LABS: Band Neutrophils % (manual) 4; Lymphocytes % (manual) 4 (10.0-50.0); Metamyelocytes % 1; Monocytes % (manual) 4 (0-12); Platelet Estimate Adequate
[2024-03-12] MEDS: MECLIZINE HCL 25 MG TAB PO PRN (21:42)
[2024-03-12] MEDS ORDERED: MECLIZINE HCL 25 MG TAB PO SCH (22:00)
[2024-03-13] VITALS (14 sets, daily range): BP systolic 109–129; BP diastolic 70–88; PULSE 71–88; RESP 16–19; TEMP 96.7–98.1; O2SAT 91–100
[2024-03-13] MEDS ORDERED: PANTOPRAZOLE 40 MG TAB PO SCH (06:00)
[2024-03-13] MEDS: cefTRIAXone 1GM/50ML D5W 50 ML IV SCH (15:42)
[2024-03-13] MEDS: AZITHROMYCIN 500MG/ 250ML 250 ML IV SCH (15:43)
[2024-03-13] MEDS: ALBUTEROL SULF 2.5 MG/0.5ML(0.5%) NEB SOLN NEB SCH (22:19)
[2024-03-13] MEDS: IPRATROPIUM BROM 0.5 MG/2.5ML INH SOL NEB SCH (22:19)
[2024-03-14] VITALS (21 sets, daily range): BP systolic 112–136; BP diastolic 59–85; PULSE 67–102; RESP 16–20; TEMP 97.9–98.2; O2SAT 91–100
[2024-03-14] MEDS: ACETAMINOPHEN 325 MG TAB PO PRN (16:43)
[2024-03-15] VITALS (19 sets, daily range): BP systolic 109–128; BP diastolic 76–80; PULSE 72–110; RESP 15–24; TEMP 97.5–98.1; O2SAT 92–100
[2024-03-15] MEDS ORDERED: DOXY1CAP57 PO (11:49)
[2024-03-15] MEDS ORDERED: METH4PAK PO (11:49)
[2024-03-15 15:19] LABS: Base Excess -4.7 mmol/L (-2.0-3.0)
[2024-03-16] VITALS (18 sets, daily range): BP systolic 109–144; BP diastolic 73–86; PULSE 69–107; RESP 14–24; TEMP 97.8–98.2; O2SAT 89–97
[2024-03-16] MEDS ORDERED: LORazepam 0.5 MG TAB PO PRN (10:15)
[2024-03-16 12:16] LABS: Base Excess -1.3 mmol/L (-2.0-3.0)
[2024-03-16] MEDS: TAMSULOSIN HYDROCHLORIDE 0.4 MG CAP PO ONE (12:29)
== END 2024-03-16 19:18 | disposition home or self-care (01) | DRG 140 ==
LOC: ER 13:57 → TELE-CENTR 22:40 → TELE 22:40 → TELE-CENTR 23:45
PROVIDERS: ADMIT Nurse Practitioner Family; ATTEND Internal Medicine Geriatric Medicine
DX: J44.1 Chronic obstructive pulmonary disease with (acute) exacerbation (principal); J96.21 Acute and chronic respiratory failure with hypoxia; Z99.81 Dependence on supplemental oxygen; I10 Essential (primary) hypertension; N20.0 Calculus of kidney; N40.0 Benign prostatic hyperplasia without lower urinary tract symptoms; E11.9 Type 2 diabetes mellitus without complications; C44.90 Unspecified malignant neoplasm of skin, unspecified; I25.10 Atherosclerotic heart disease of native coronary artery without angina pectoris; F17.210 Nicotine dependence, cigarettes, uncomplicated; Z87.442 Personal history of urinary calculi; Z86.711 Personal history of pulmonary embolism; Z79.01 Long term (current) use of anticoagulants; I25.2 Old myocardial infarction
CPT/HCPCS: 36415; 36600; 71045; 80053; 81001; 82805; 83735; 84484; 85007; 85027; 87081; 93005; 94640; 97110; 97116; 97163; 97530; G0378; J3490